=== PATIENT | female | born 1940 | race Caucasian/White ===

== ENCOUNTER → 2017-03-02 | Outpatient (CLI) | payer MEDICARE ==
[2017-03-02 11:02] LABS: ALT 31 U/L (9-52); AST 28 U/L (14-36); Alkaline Phosphatase 96 U/L (38-126); Anion Gap 10 mmol/L; Blood Urea Nitrogen 18 mg/dL (7-17); Calcium 9.6 mg/dL (8.4-10.2); Carbon Dioxide 26 mmol/L (22-30); Chloride 107 mmol/L (98-107); Cholesterol 192 mg/dL (<200); Glucose 94 mg/dL (74-99); HDL Cholesterol 107 mg/dL (40-60); Non-African American GFR(MDRD) >60 (>60 ml/min/1.73 sqM); Potassium 4.5 mmol/L (3.5-5.1); Sodium 143 mmol/L (137-145); Total Bilirubin 0.8 mg/dL (0.2-1.3); Total Protein 7.3 g/dL (6.3-8.2); Triglycerides 90 mg/dL (<150)
== END | disposition home or self-care (01) ==
LOC: LABWHC1 09:16
PROVIDERS: ATTEND Internal Medicine Interventional Cardiology
DX: E78.2 Mixed hyperlipidemia (principal)
CPT/HCPCS: 36415; 80053; 80061

== ENCOUNTER → 2017-03-06 | Outpatient (CLI) | payer MEDICARE ==
--- NOTE | 2017-03-09 08:44 | MM ---
Reason for exam: screening (asymptomatic). Last mammogram was performed 1 year and 3 months ago. History: Patient is postmenopausal. Family history of premenopausal breast cancer in sister at age 43. Physical Findings: A clinical breast exam by your physician is recommended on an annual basis and results should be correlated with mammographic findings. MG Screening Mammo w CAD Bilateral CC and MLO view(s) were taken. Prior study comparison: November 26, 2015, bilateral MG screening mammo w CAD. October 02, 2014, bilateral MG screening mammo w CAD. There are scattered fibroglandular densities. No significant changes when compared with prior studies. ASSESSMENT: Benign, BI-RAD 2 RECOMMENDATION: Routine screening mammogram of both breasts in 1 year.
== END | disposition home or self-care (01) ==
LOC: RADMAMWWP 11:19
PROVIDERS: ATTEND Internal Medicine
DX: Z12.31 Encounter for screening mammogram for malignant neoplasm of breast (principal)

== ENCOUNTER → 2017-04-23 | Outpatient (CLI) | payer MEDICARE ==
--- NOTE | 2017-04-23 14:58 | BD ---
EXAMINATION TYPE: MG DEXA axial skeleton. DATE OF EXAM: 04/23/2017 CLINICAL HISTORY: N95.1 POST MENOPAUSAL Height: 58inches Weight: 127 FRAX RISK QUESTIONS: Alcohol (3 or more units per day): no Family History (Parent hip fracture): no Glucocorticoids (More than 3mos): no (Ex: prednisone, prednisolone, methylprednisolone, dexamethasone, and hydrocortisone). History of Fracture in Adulthood: no Secondary Osteoporosis: 1. Type 1 Diabetes: no 2. Hyperthyroidism: no 3. Menopause before 45: no 4. Malnutrition: no 5. Chronic liver disease: no Rheumatoid Arthritis: no Current Tobacco Use: no RISK FACTORS HISTORY OF: Hip Fracture (Right/Left): no Spine Fracture: no History of Wrist Fracture: no Surgery to Spine/Hip(right/left)/Wrist (right/left): no Family History of Osteoporosis: yes, sister Active: yes Diet low in dairy products/other sources of calcium: at least one serving a day Postmenopausal woman: yes Take estrogen and/or progesterone medications: no Lost more than 2 inches in height since high school: patient states that at one time height was 5 fee t; however 2005 bone density lists 62 inches as height Frequent falls: no Poor Health: no Hyperparathyroidism: no Adrenal Insufficiency: no MEDICATIONS: Prednisone or other steroids: no Thyroid Medications: no Osteoporosis Medications: no Additional Medications: Lisinopril, Metoprolol Lipitor, Omeprazole, EXAM MEASUREMENTS: Bone mineral densitometry was performed using the [employer] System. Bone mineral density as measured about the Lumbar spine is: ----- L1-L4(G/cm2): 0.787 T Score Values are as follows: ----- L2: -3.3 ----- L3: -3.3 ----- L4: -3.2 ----- L1-L4: -3.3 Bone mineral density has: Decreased -12.6% since study of: 07/02/2006 Bone mineral density about the R hip (g/cm2): 0.647 Bone mineral density about the L hip (g/cm2): 0.632 T Score values are as follows: -----R Neck: -2.8 -----L Neck: -2.9 -----R Total: -2.4 -----L Total: -2.4 Bone mineral density has: Decreased -17.8% since study of: 07/02/2006 IMPRESSION: Osteopenia (T Score between -2.5 and -1 as noted by T score values Bilateral Totals There is slightly increased risk of fracture and the patient may be considered for treatment. Re-Screen 2-5 years. Osteoporosis (T Score less than -2.5) as noted by T Score values at the Lumbar Spine & Bilateral Ne cks There is increased fracture risk and therapy is usually indicated based on age. Re-Screen 1-2 years. NOTE: T-SCORE=SD OF THE YOUNG ADULT MEAN.
== END | disposition home or self-care (01) ==
LOC: RADBDWWP 12:34
PROVIDERS: ATTEND Internal Medicine
DX: M85.80 Other specified disorders of bone density and structure, unspecified site (principal); M81.0 Age-related osteoporosis without current pathological fracture; N95.1 Menopausal and female climacteric states
CPT/HCPCS: 77080

== ENCOUNTER → 2017-08-25 | Outpatient (CLI) | payer MEDICARE ==
[2017-08-25 10:11] LABS: ALT 29 U/L (9-52); AST 24 U/L (14-36); Cholesterol 198 mg/dL (<200); HDL Cholesterol 110 mg/dL (40-60)
== END | disposition home or self-care (01) ==
LOC: LABWHC1 09:22
PROVIDERS: ATTEND Internal Medicine Interventional Cardiology
DX: E78.2 Mixed hyperlipidemia (principal)
CPT/HCPCS: 36415; 80061; 84450; 84460

== ENCOUNTER → 2018-04-05 | Outpatient (CLI) | payer MEDICARE ==
[2018-04-05 10:10] LABS: Albumin 4.2 g/dL (3.5-5.0); Calcium 9.4 mg/dL (8.4-10.2); Total Bilirubin 0.7 mg/dL (0.2-1.3); Total Protein 6.8 g/dL (6.3-8.2)
== END | disposition home or self-care (01) ==
LOC: LABWHC1 09:26
PROVIDERS: ATTEND Internal Medicine Interventional Cardiology
DX: E78.2 Mixed hyperlipidemia (principal)
CPT/HCPCS: 36415; 80053; 80061

== ENCOUNTER → 2018-07-20 | Outpatient (CLI) | payer MEDICARE ==
--- NOTE | 2018-07-22 08:19 | MM ---
Reason for exam: screening (asymptomatic). Last mammogram was performed 1 year and 4 months ago. History: Patient is postmenopausal. Family history of premenopausal breast cancer in sister at age 43. Physical Findings: A clinical breast exam by your physician is recommended on an annual basis and results should be correlated with mammographic findings. MG Screening Mammo w CAD Bilateral CC, MLO, and XCCL view(s) were taken. Prior study comparison: March 06, 2017, bilateral MG screening mammo w CAD. November 26, 2015, bilateral MG screening mammo w CAD. There are scattered fibroglandular densities. No significant changes when compared with prior studies. ASSESSMENT: Negative, BI-RAD 1 RECOMMENDATION: Routine screening mammogram of both breasts in 1 year.
== END | disposition home or self-care (01) ==
LOC: RADMAMWWP 12:19
PROVIDERS: ATTEND Internal Medicine
DX: Z12.31 Encounter for screening mammogram for malignant neoplasm of breast (principal)
CPT/HCPCS: 77067

== ENCOUNTER → 2018-10-15 | Outpatient (CLI) | payer MEDICARE ==
[2018-10-15 15:43] LABS: LDL Cholesterol,Calculated 69.2 mg/dL (0.0-131.0); VLDL Calculation 13.8 mg/dL (5.00-40.00)
== END ==
LOC: LABWHC1 09:42
PROVIDERS: ATTEND Internal Medicine Interventional Cardiology
DX: E78.2 Mixed hyperlipidemia (principal)
CPT/HCPCS: 36415; 80061; 84450; 84460

== ENCOUNTER → 2019-02-07 | Outpatient (CLI) | payer MEDICARE ==
[2019-02-07 17:47] LABS: Albumin 4.2 g/dL (3.80-4.90); Albumin/Globulin Ratio 2.33 (1.60-3.17); Anion Gap 11.5 mmol/L (4.00-12.00); Calcium 9.5 mg/dL (8.7-10.3); Carbon Dioxide 26.5 mmol/L (21.6-31.8); Globulin 1.8 g/dL (1.6-3.3); Potassium 4.4 mmol/L (3.5-5.5); Total Bilirubin 0.6 mg/dL (0.2-1.2)
== END | disposition home or self-care (01) ==
LOC: LABWHC1 09:06
PROVIDERS: ATTEND Internal Medicine Interventional Cardiology
DX: E78.2 Mixed hyperlipidemia (principal)
CPT/HCPCS: 36415; 80053; 80061

== ENCOUNTER → 2019-06-13 | Outpatient (CLI) | payer MEDICARE ==
[2019-06-13 17:55] LABS: Chol/HDL Ratio 1.9; LDL Cholesterol,Calculated 73.6 mg/dL (0.0-131.0); VLDL Calculation 14.4 mg/dL (5.00-40.00)
== END | disposition home or self-care (01) ==
LOC: LABWHC1 09:28
PROVIDERS: ATTEND Internal Medicine Interventional Cardiology
DX: E78.2 Mixed hyperlipidemia (principal)
CPT/HCPCS: 36415; 80061; 84450; 84460

== ENCOUNTER → 2019-08-18 | Outpatient (CLI) | payer MEDICARE ==
--- NOTE | 2019-08-19 14:00 | MM ---
Reason for exam: screening (asymptomatic). Last mammogram was performed 1 year and 1 month ago. History: Patient is postmenopausal. Family history of breast cancer in sister at age 79 and premenopausal breast cancer in sister at age 43. Took hormonal contraceptives for 10 years. Physical Findings: A clinical breast exam by your physician is recommended on an annual basis and results should be correlated with mammographic findings. MG Screening Mammo w CAD Bilateral CC and MLO view(s) were taken. Prior study comparison: July 20, 2018, bilateral MG screening mammo w CAD. March 06, 2017, bilateral MG screening mammo w CAD. There are scattered fibroglandular densities. Finding: There is a 6 mm high density, circumscribed oval mass located 8 cm from the nipple in the upper quadrant, middle position of the left breast. New finding since July 20, 2018. ASSESSMENT: Incomplete: need additional imaging evaluation, BI-RAD 0 RECOMMENDATION: Special view mammogram of the left breast. If lesion persists on supplemental views, image directed ultrasound is recommended. [facility] will attempt to contact patient to return for supplemental views and ultrasound if indicated.
== END | disposition home or self-care (01) ==
LOC: RADMAMWWP 11:11
PROVIDERS: ATTEND Internal Medicine
DX: Z12.31 Encounter for screening mammogram for malignant neoplasm of breast (principal)
CPT/HCPCS: 77067

== ENCOUNTER → 2019-08-30 | Outpatient (CLI) | payer MEDICARE ==
--- NOTE | 2019-08-30 10:56 | MM ---
Reason for exam: additional evaluation requested from abnormal screening. Last mammogram was performed less than 1 month ago. History: Patient is postmenopausal. Family history of breast cancer in sister at age 79 and premenopausal breast cancer in sister at age 43. Took hormonal contraceptives for 10 years. Physical Findings: Nurse did not find any significant physical abnormalities on exam. MG Work Up Mamm w CAD LT Spot compression CC, spot compression MLO, and ML view(s) were taken of the left breast. Prior study comparison: August 18, 2019, bilateral MG screening mammo w CAD. July 20, 2018, bilateral MG screening mammo w CAD. Benign appearing calcifications in the left breast. No significant new findings when compared with previous films. These results were verbally communicated with the patient and result sheet given to the patient on 08/30/19. ASSESSMENT: Probably benign, BI-RAD 3 RECOMMENDATION: Follow-up diagnostic mammogram of the left breast in 6 months.
== END ==
LOC: RADMAMWWP 10:13
PROVIDERS: ATTEND Internal Medicine
DX: R92.8 Other abnormal and inconclusive findings on diagnostic imaging of breast (principal)
CPT/HCPCS: 77065

== ENCOUNTER → 2019-09-27 | Outpatient (CLI) | payer MEDICARE ==
[2019-09-27 17:51] LABS: African American GFR (CKD) 71.5 (60.0-200.0); Albumin 4.4 g/dL (3.80-4.90); Albumin/Globulin Ratio 2.32 (1.60-3.17); Anion Gap 7.1 mmol/L (4.00-12.00); BUN/Creat Ratio 16.67 Ratio (12.00-20.00); Calcium 9.5 mg/dL (8.7-10.3); Carbon Dioxide 28.9 mmol/L (21.6-31.8); Chol/HDL Ratio 1.8; Globulin 1.9 g/dL (1.6-3.3); LDL Cholesterol,Calculated 73.8 mg/dL (0.0-131.0); Non-African American GFR(CKD) 61.7 (60.0-200.0); Potassium 4.3 mmol/L (3.5-5.5); Total Bilirubin 0.7 mg/dL (0.2-1.2); Total Protein 6.3 g/dL (6.2-8.2); VLDL Calculation 14.2 mg/dL (5.00-40.00)
== END | disposition home or self-care (01) ==
LOC: LABWHC1 09:19
PROVIDERS: ATTEND Nurse Practitioner Adult Health
DX: E78.2 Mixed hyperlipidemia (principal); I10 Essential (primary) hypertension
CPT/HCPCS: 36415; 80053; 80061

== ENCOUNTER → 2020-08-30 | Outpatient (CLI) | payer MEDICARE ==
--- NOTE | 2020-09-03 09:07 | MM ---
Reason for exam: screening (asymptomatic). Last mammogram was performed 1 year ago. History: Patient is postmenopausal. Family history of breast cancer in sister at age 79 and premenopausal breast cancer in sister at age 43. Took hormonal contraceptives for 10 years. Physical Findings: A clinical breast exam by your physician is recommended on an annual basis and results should be correlated with mammographic findings. MG Screening Mammo w CAD Bilateral CC and MLO view(s) were taken. Prior study comparison: August 30, 2019, left breast MG work up mamm w CAD LT. August 18, 2019, bilateral MG screening mammo w CAD. There are scattered fibroglandular densities. Stable course calcifications bilaterally. Posterior central asymmetry right MLO compatible with a mole as marked on prior exams. No significant changes when compared with prior studies. ASSESSMENT: Benign, BI-RAD 2 RECOMMENDATION: Routine screening mammogram of both breasts in 1 year.
== END | disposition home or self-care (01) ==
LOC: RADMAMWWP 16:08
PROVIDERS: ATTEND Internal Medicine
DX: Z12.31 Encounter for screening mammogram for malignant neoplasm of breast (principal)
CPT/HCPCS: 77067

== ENCOUNTER → 2021-04-11 | Outpatient (CLI) | payer MEDICARE ==
[2021-04-11 17:15] LABS: Chol/HDL Ratio 2.01
== END | disposition home or self-care (01) ==
LOC: LABWHC1 09:34
PROVIDERS: ATTEND Nurse Practitioner Adult Health
DX: E78.2 Mixed hyperlipidemia (principal)
CPT/HCPCS: 36415; 80061

== ENCOUNTER 2021-07-15 18:56 | Inpatient (IN) | payer MEDICARE ==
[2021-07-15] MEDS ORDERED: SODIUM CHLORIDE 0.9% 1,000 ML IV STA (19:54)
--- NOTE | 2021-07-15 20:10 | ED ---
General Adult HPI - General Chief complaint: Dizziness Stated complaint: dizziness Time Seen by Provider: 07/15/21 19:38 Source: patient, EMS Mode of arrival: EMS Limitations: no limitations - History of Present Illness Initial comments: 81-year-old female with a past medical history of GERD, hyperlipidemia, hypertension, palpitations, SVT presents to the emergency room for a chief complaint of lightheadedness. Patient states that she has had lightheadedness for years. However today it has worsened. Patient denies sensation of room spinning. Patient states that she feels fatigued at times throughout the day and she can't keep her eyes open. Sometimes feels too weak to walk. Patient has also had some nausea that just started about 2 hours ago. She does have a cough and congestion as well. No fevers. No diarrhea. Patient states she is eating and drinking. States that she has been to the emergency room before for when her lightheadedness worsens and they can never find anything. She reports this was other hospitals that she has not been to this ER. Patient denies any chest pain or shortness of breath.Patient has no other complaints at this time including shortness of breath, chest pain, abdominal pain, vomiting, headache, or visual changes. - Related Data Home Medications Medication Instructions Recorded Confirmed Aspirin 81 mg PO DAILY 03/01/15 07/15/21 Atorvastatin [Lipitor] 10 mg PO HS 03/01/15 07/15/21 Metoprolol Tartrate [Lopressor] 25 mg PO BID 03/01/15 07/15/21 Meclizine [Antivert] 25 mg PO TID PRN 02/04/16 07/15/21 Omeprazole [PriLOSEC] 20 mg PO DAILY 02/04/16 07/15/21 amLODIPine [Norvasc] 2.5 mg PO HS 07/15/21 07/15/21 lisinopriL 20 mg PO BID 07/15/21 07/15/21 Allergies Allergy/AdvReac Type Severity Reaction Status Date / Time Sulfa (Sulfonamide Allergy Rash/Hives Verified 07/15/21 21:17 Antibiotics) Review of Systems ROS Statement: Those systems with pertinent positive or pertinent negative responses have been documented in the HPI. ROS Other: All systems not noted in ROS Statement are negative. Past Medical History Past Medical History: GERD/Reflux, Hyperlipidemia, Hypertension Additional Past Medical History / Comment(s): HX OF PALPITATIONS, SVT., KIDNEY STONES, HIATAL HERNIA., DIZZINESS. , STATES SHE WAS HAVING DIARRHEA AND TAKING PEPTO BISMOL WITH DARK STOOLS. STATES STOOLS NORMAL NOW. History of Any Multi-Drug Resistant Organisms: None Reported Past Surgical History: Cardiac Ablation, Heart Catheterization, Hysterectomy Additional Past Surgical History / Comment(s): partial hysterectomy, pelvic prolapse/cystocele repair Past Anesthesia/Blood Transfusion Reactions: No Reported Reaction, Motion Sickness Additional Past Anesthesia/Blood Transfusion Reaction / Comment(s): GETS DIZZY AFTERWARDS Past Psychological History: No Psychological Hx Reported Past Alcohol Use History: Rare Past Drug Use History: None Reported - Past Family History Sister(s) Family Medical History: Cancer Additional Family Medical History / Comment(s): BREAST CANCER Father Additional Family Medical History / Comment(s): ulcers, hernia Mother Family Medical History: Hypertension, Renal Disease Additional Family Medical History / Comment(s): lupus General Exam Limitations: no limitations General appearance: alert, in no apparent distress Head exam: Present: atraumatic Eye exam: Present: normal appearance, PERRL, EOMI. Absent: scleral icterus, conjunctival injection ENT exam: Present: normal exam, mucous membranes moist Neck exam: Present: normal inspection, full ROM. Absent: tenderness Respiratory exam: Present: normal lung sounds bilaterally. Absent: respiratory distress, wheezes Cardiovascular Exam: Present: regular rate, normal rhythm, normal heart sounds GI/Abdominal exam: Present: soft, normal bowel sounds. Absent: distended, tenderness Course Vital Signs 07/15/21 07/15/21 07/15/21 19:14 21:55 23:20 Temperature 97.0 F L Pulse Rate 60 78 79 Respiratory 18 18 18 Rate Blood Pressure 167/83 151/75 140/75 O2 Sat by Pulse 95 97 92 L Oximetry EKG Findings - EKG Comments: EKG Findings:: Sinus rhythm, ventricular rate 63, ME interval 158, QTC 450 Medical Decision Making - Medical Decision Making Laboratory evaluation unremarkable. EKG nonischemic. Troponin negative. BNP normal. CT brain was obtained which showed no acute process. Patient did get up to try to use the restroom and her oxygen went down to 87%. Therefore a CTA was ordered of the chest. This did reveal a large hiatal hernia as well as bilateral lower lobe mild infiltrate. Given hypoxia patient was started on oxygen and it was felt it would be best to admit patient to the hospital for IV antibiotics and monitoring. Dr. Bourne did accept this admission. - Lab Data Result diagrams: 07/15/21 19:59 07/15/21 19:59 Lab Results 07/15/21 07/15/21 07/15/21 Range/Units 19:59 19:59 19:59 WBC 6.1 (3.8-10.6) k/uL RBC 4.43 (3.80-5.40) m/uL Hgb 13.3 (11.4-16.0) gm/dL Hct 40.8 (34.0-46.0) % MCV 92.1 (80.0-100.0) fL MCH 30.1 (25.0-35.0) pg MCHC 32.7 (31.0-37.0) g/dL RDW 12.7 (11.5-15.5) % Plt Count 165 (150-450) k/uL MPV 8.9 Neutrophils % 78 % Lymphocytes % 14 % Monocytes % 5 % Eosinophils % 1 % Basophils % 1 % Neutrophils # 4.8 (1.3-7.7) k/uL Lymphocytes # 0.8 L (1.0-4.8) k/uL Monocytes # 0.3 (0-1.0) k/uL Eosinophils # 0.1 (0-0.7) k/uL Basophils # 0.0 (0-0.2) k/uL PT 10.3 (9.0-12.0) sec INR 1.0 (<1.2) APTT 18.7 L (22.0-30.0) sec Sodium (137-145) mmol/L Potassium (3.5-5.1) mmol/L Chloride (98-107) mmol/L Carbon Dioxide (22-30) mmol/L Anion Gap mmol/L BUN (7-17) mg/dL Creatinine (0.52-1.04) mg/dL Est GFR (CKD-EPI)AfAm (>60 ml/min/1.73 sqM) Est GFR (CKD-EPI)NonAf (>60 ml/min/1.73 sqM) Glucose (74-99) mg/dL Plasma Lactic Acid Yahir (0.7-2.0) mmol/L Calcium (8.4-10.2) mg/dL Magnesium (1.6-2.3) mg/dL Total Bilirubin (0.2-1.3) mg/dL AST (14-36) U/L ALT (4-34) U/L Alkaline Phosphatase (38-126) U/L Troponin I (0.000-0.034) ng/mL NT-Pro-B Natriuret Pep pg/mL Total Protein (6.3-8.2) g/dL Albumin (3.5-5.0) g/dL Urine Color Light Yellow Urine Appearance Clear (Clear) Urine pH 5.5 (5.0-8.0) Ur Specific Colver 1.008 (1.001-1.035) Urine Protein Negative (Negative) Urine Glucose (UA) Negative (Negative) Urine Ketones 1+ H (Negative) Urine Blood Negative (Negative) Urine Nitrite Negative (Negative) Urine Bilirubin Negative (Negative) Urine Urobilinogen <2.0 (<2.0) mg/dL Ur Leukocyte Esterase Negative (Negative) Coronavirus (PCR) (Not Detectd) 07/15/21 07/15/21 07/15/21 Range/Units 19:59 19:59 19:59 WBC (3.8-10.6) k/uL RBC (3.80-5.40) m/uL Hgb (11.4-16.0) gm/dL Hct (34.0-46.0) % MCV (80.0-100.0) fL MCH (25.0-35.0) pg MCHC (31.0-37.0) g/dL RDW (11.5-15.5) % Plt Count (150-450) k/uL MPV Neutrophils % % Lymphocytes % % Monocytes % % Eosinophils % % Basophils % % Neutrophils # (1.3-7.7) k/uL Lymphocytes # (1.0-4.8) k/uL Monocytes # (0-1.0) k/uL Eosinophils # (0-0.7) k/uL Basophils # (0-0.2) k/uL PT (9.0-12.0) sec INR (<1.2) APTT (22.0-30.0) sec Sodium 136 L (137-145) mmol/L Potassium 3.9 (3.5-5.1) mmol/L Chloride 104 (98-107) mmol/L Carbon Dioxide 22 (22-30) mmol/L Anion Gap 10 mmol/L BUN 17 (7-17) mg/dL Creatinine 0.73 (0.52-1.04) mg/dL Est GFR (CKD-EPI)AfAm >90 (>60 ml/min/1.73 sqM) Est GFR (CKD-EPI)NonAf 79 (>60 ml/min/1.73 sqM) Glucose 127 H (74-99) mg/dL Plasma Lactic Acid Yahir 1.0 (0.7-2.0) mmol/L Calcium 9.6 (8.4-10.2) mg/dL Magnesium 1.6 (1.6-2.3) mg/dL Total Bilirubin 0.7 (0.2-1.3) mg/dL AST 29 (14-36) U/L ALT 16 (4-34) U/L Alkaline Phosphatase 82 (38-126) U/L Troponin I <0.012 (0.000-0.034) ng/mL NT-Pro-B Natriuret Pep pg/mL Total Protein 7.1 (6.3-8.2) g/dL Albumin 4.3 (3.5-5.0) g/dL Urine Color Urine Appearance (Clear) Urine pH (5.0-8.0) Ur Specific Colver (1.001-1.035) Urine Protein (Negative) Urine Glucose (UA) (Negative) Urine Ketones (Negative) Urine Blood (Negative) Urine Nitrite (Negative) Urine Bilirubin (Negative) Urine Urobilinogen (<2.0) mg/dL Ur Leukocyte Esterase (Negative) Coronavirus (PCR) (Not Detectd) 07/15/21 07/15/21 Range/Units 19:59 19:59 WBC (3.8-10.6) k/uL RBC (3.80-5.40) m/uL Hgb (11.4-16.0) gm/dL Hct (34.0-46.0) % MCV (80.0-100.0) fL MCH (25.0-35.0) pg MCHC (31.0-37.0) g/dL RDW (11.5-15.5) % Plt Count (150-450) k/uL MPV Neutrophils % % Lymphocytes % % Monocytes % % Eosinophils % % Basophils % % Neutrophils # (1.3-7.7) k/uL Lymphocytes # (1.0-4.8) k/uL Monocytes # (0-1.0) k/uL Eosinophils # (0-0.7) k/uL Basophils # (0-0.2) k/uL PT (9.0-12.0) sec INR (<1.2) APTT (22.0-30.0) sec Sodium (137-145) mmol/L Potassium (3.5-5.1) mmol/L Chloride (98-107) mmol/L Carbon Dioxide (22-30) mmol/L Anion Gap mmol/L BUN (7-17) mg/dL Creatinine (0.52-1.04) mg/dL Est GFR (CKD-EPI)AfAm (>60 ml/min/1.73 sqM) Est GFR (CKD-EPI)NonAf (>60 ml/min/1.73 sqM) Glucose (74-99) mg/dL Plasma Lactic Acid Yahir (0.7-2.0) mmol/L Calcium (8.4-10.2) mg/dL Magnesium (1.6-2.3) mg/dL Total Bilirubin (0.2-1.3) mg/dL AST (14-36) U/L ALT (4-34) U/L Alkaline Phosphatase (38-126) U/L Troponin I (0.000-0.034) ng/mL NT-Pro-B Natriuret Pep 284 pg/mL Total Protein (6.3-8.2) g/dL Albumin (3.5-5.0) g/dL Urine Color Urine Appearance (Clear) Urine pH (5.0-8.0) Ur Specific Colver (1.001-1.035) Urine Protein (Negative) Urine Glucose (UA) (Negative) Urine Ketones (Negative) Urine Blood (Negative) Urine Nitrite (Negative) Urine Bilirubin (Negative) Urine Urobilinogen (<2.0) mg/dL Ur Leukocyte Esterase (Negative) Coronavirus (PCR) Not Detected (Not Detectd) Disposition Clinical Impression: Hypoxia, Pneumonia, Weakness Disposition: ADMITTED IP TO THIS HOSP Referrals: Rehan Bourne MD [Primary Care Provider] - 1-2 days Time of Disposition: 00:07
[2021-07-15 20:15] LABS: Basophils % (A) 1 %; Eosinophils # (A) 0.1 k/uL (0-0.7); Eosinophils % (A) 1 %; HCT 40.8 % (34.0-46.0); HGB 13.3 gm/dL (11.4-16.0); Lymphocytes # (A) 0.8 k/uL (1.0-4.8); Lymphocytes % (A) 14 %; MCH 30.1 pg (25.0-35.0); MCHC 32.7 g/dL (31.0-37.0); MCV 92.1 fL (80.0-100.0); Mean Platelet Volume 8.9; Monocytes # (A) 0.3 k/uL (0-1.0); Monocytes % (A) 5 %; Neutrophils # (A) 4.8 k/uL (1.3-7.7); Neutrophils % (A) 78 %; Platelet Count 165 k/uL (150-450); RBC 4.43 m/uL (3.80-5.40); RDW 12.7 % (11.5-15.5); WBC 6.1 k/uL (3.8-10.6)
[2021-07-15 20:24] LABS: ALT 16 U/L (4-34); AST 29 U/L (14-36); African American GFR (CKD) >90 (>60 ml/min/1.73 sqM); Albumin 4.3 g/dL (3.5-5.0); Alkaline Phosphatase 82 U/L (38-126); Anion Gap 10 mmol/L; Blood Urea Nitrogen 17 mg/dL (7-17); Calcium 9.6 mg/dL (8.4-10.2); Carbon Dioxide 22 mmol/L (22-30); Chloride 104 mmol/L (98-107); Glucose 127 mg/dL (74-99); Magnesium 1.6 mg/dL (1.6-2.3); Non-African American GFR(CKD) 79 (>60 ml/min/1.73 sqM); Potassium 3.9 mmol/L (3.5-5.1); Sodium 136 mmol/L (137-145); Total Bilirubin 0.7 mg/dL (0.2-1.3); Total Protein 7.1 g/dL (6.3-8.2)
--- NOTE | 2021-07-15 20:35 | XR ---
EXAMINATION TYPE: XR chest 2V DATE OF EXAM: 07/15/2021 COMPARISON: 08/18/2010 HISTORY: Weakness TECHNIQUE: FINDINGS: There is large hiatal hernia. There is no heart failure nor confluent pneumonic infiltrate. Costophrenic angles are clear. Bony thorax is intact. Heart size is fairly normal. IMPRESSION: Large hiatal hernia that is new compared to old exam. No acute lung disease.
[2021-07-15 20:48] LABS: Prothrombin Time 10.3 sec (9.0-12.0)
--- NOTE | 2021-07-15 20:56 | CT ---
EXAMINATION TYPE: CT brain wo con DATE OF EXAM: 07/15/2021 COMPARISON: None HISTORY: Dizziness. CT DLP: 1111.4 mGycm Automated exposure control for dose reduction was used. There is cerebral cortical atrophy. There is no mass effect nor midline shift. There is no sign of in tracranial hemorrhage. Skull base is intact. Calvarium is intact. IMPRESSION: Mild atrophy. No acute intracranial abnormality.
[2021-07-15 20:58] LABS: Partial Thromboplastin Time 18.7 sec (22.0-30.0)
[2021-07-15] MEDS ORDERED: MECLIZINE 12.5 MG TAB PO STA (21:43)
[2021-07-15 21:59] LABS: Appearance,Urine Clear (Clear); Bilirubin,Urine Negative (Negative); Blood,Urine Negative (Negative); Color,Urine Light Yellow; Glucose,Urine (UA) Negative (Negative); Ketones,Urine 1+ (Negative); Leukocyte Esterase,Urine Negative (Negative); Nitrite,Urine Negative (Negative); PH, Urine 5.5 (5.0-8.0); Protein,Urine Negative (Negative); Specific Gravity,Urine 1.008 (1.001-1.035); Urobilinogen,Urine <2.0 mg/dL (<2.0)
[2021-07-15] MEDS: lisinopriL 20 MG TAB PO SCH (23:21)
[2021-07-15] MEDS: ATORVASTATIN 10 MG TAB PO SCH (23:21)
[2021-07-15] MEDS: amLODIPine 2.5 MG TAB PO SCH (23:22)
[2021-07-15] MEDS: METOPROLOL TARTRATE 25 MG TAB PO SCH (23:22)
--- NOTE | 2021-07-15 23:23 | CT ---
EXAMINATION TYPE: CT chest angio for PE DATE OF EXAM: 07/15/2021 COMPARISON: 08/04/2016 HISTORY: hypoxia CT DLP: 211.8 mGycm Automated exposure control for dose reduction was used. CONTRAST: Performed with IV Contrast, patient injected with 100 mL of Isovue 370. There is 3-D post processed images. There is very large hiatal hernia and intrathoracic stomach. Heart is borderline enlarged. There is n o pericardial effusion. There is infiltrate and atelectasis at the left lung base. There is mild atel ectasis right lung base. There is normal contrast opacification of the pulmonary arteries. There are no filling defects. There are no hilar masses. There is no mediastinal adenopathy. Thoracic aorta appears intact. There is no aneurysm or dissection. The ascending aorta measures 3.5 cm. Thoracic spine is intact. There is no significant compression deformity. Sternum is intact. Upper abd ominal soft tissues are intact. IMPRESSION: No evidence of pulmonary embolism. Large hiatal hernia. Bilateral lower lobe pulmonary atelectasis and mild infiltrate. Hiatal hernia in creased compared to old exam.
[2021-07-16] MEDS ORDERED: PNEUMONIA PROTOCOL UTILIZED 1 EACH MISC PO PRN (00:03)
[2021-07-16] MEDS ORDERED: AZITHROMYCIN 500 MG in SODIUM CHLORIDE 0.9% 250 ML IVPB STA (00:03)
[2021-07-16] MEDS: PANTOPRAZOLE 40 MG TABLET PO SCH (09:01)
[2021-07-16] MEDS: lisinopriL 20 MG TAB PO SCH ×2 (09:02→20:32)
[2021-07-16] MEDS: ASPIRIN 81 MG PO SCH (09:02)
[2021-07-16] MEDS: METOPROLOL TARTRATE 25 MG TAB PO SCH ×2 (09:02→20:32)
--- NOTE | 2021-07-16 12:41 | US ---
EXAMINATION TYPE: US carotid duplex BILAT DATE OF EXAM: 07/16/2021 COMPARISON: NONE CLINICAL HISTORY: Lightheadedness. EXAM MEASUREMENTS: RIGHT: Peak Systolic Velocity (PSV) cm/sec ----- Right CCA: 79.0 ----- Right ICA: 73.1 ----- Right ECA: 69.5 ICA/CCA ratio: 0.93 RIGHT: End Diastole cm/sec ----- Right CCA: 21.4 ----- Right ICA: 23.8 ----- Right ECA: 13.7 LEFT: Peak Systolic Velocity (PSV) cm/sec ----- Left CCA: 76.6 ----- Left ICA: 98.0 ----- Left ECA: 67.7 ICA/CCA ratio: 1.3 LEFT: End Diastole cm/sec ----- Left CCA: 20.8 ----- Left ICA: 29.7 ----- Left ECA: 13.1 VERTEBRALS (direction of flow): Right Vertebral: Antegrade Left Vertebral: Antegrade Rhythm: Normal Grayscale, color Doppler, spectral Doppler imaging performed of the carotid arteries. Waveform analys is does not show significant stenosis of the internal carotid arteries. No elevated velocities IMPRESSION: No hemodynamically significant stenosis of the proximal internal carotid arteries by Dop pler criteria, indirect measurement of carotid stenosis Criteria for Assigning % of Stenosis / Diameter reduction (Estimation based on the indirect measurements of the internal carotid artery velocities (ICA PSV). 1. Normal (no stenosis)=ICA PSV < 125 cm/s: ratio < 2.0: ICA EDV<40 cm/s. 2. Less than 50% stenosis=ICA PSV < 125 cm/s: ratio < 2.0: ICA EDV<40 cm/s. 3. 50 to 69% stenosis=ICA PSV of 125 to 230 cm/s: ration 2.0 ? 4.0: ICA EDV 40-100 cm/s. 4. Greater than 70% stenosis to near occlusion= ICA PSV > 230 cm/s: ratio > 4.0: ICA EDV > 100 cm/s. 5. Near occlusion= ICA PSV velocities may be low or undetectable: variable ratio and ICA EDV. 6. Total occlusion=unable to detect flow.
[2021-07-16] MEDS: MECLIZINE 25 MG TAB PO PRN ×2 (13:28→18:06)
--- NOTE | 2021-07-16 17:38 | P.HPIM ---
History of Present Illness H&P Date: 07/16/21 Adelina Neal, is a 81-year-old female who presented to [facility] emergency room with a chief complaint of feeling lightheaded She was evaluated in the emergency room vital examination on presentation revealed a temperature of 97 pulse 60 respiration 18 blood pressure 167/83 pulse ox 95% on room air Laboratory data revealed a white blood count of 6.1 hemoglobin 13.3 platelet count 165 sodium 136 potassium 3.9 chloride 108 CO2 22 BUN 17 creatinine 0.73 glucose level was 127 patient had normal liver enzymes normal troponin and normal BNP urine analysis did not reveal any evidence of infection coronavirus PCR was negative Testing in the emergency room revealed chest x-ray done in the emergency room revealed large bilateral hernia, no acute lung disease, brain computed tomogr aphy scan without contrast revealed mild atrophy otherwise no acute intracranial abnormality, chest CT angiogram revealed no evidence of pulmonary embolism there was a mild infiltrate in bilateral lower lobes, she was started on IV antibiotic in the emergency room. Patient was admitted to medical floor for further evaluation and treatment Past medical history is significant for history of hypertension, history of osteoporosis, history of hyperlipidemia, history of thyroid nodule, and history of gastroesophageal reflux disease Past Medical History Past Medical History: GERD/Reflux, Hyperlipidemia, Hypertension Additional Past Medical History / Comment(s): HX OF PALPITATIONS, SVT., KIDNEY STONES, HIATAL HERNIA., DIZZINESS. , STATES SHE WAS HAVING DIARRHEA AND TAKING PEPTO BISMOL WITH DARK STOOLS. STATES STOOLS NORMAL NOW. History of Any Multi-Drug Resistant Organisms: None Reported Past Surgical History: Cardiac Ablation, Heart Catheterization, Hysterectomy Additional Past Surgical History / Comment(s): partial hysterectomy, pelvic prolapse/cystocele repair Past Anesthesia/Blood Transfusion Reactions: No Reported Reaction, Motion Sickness Additional Past Anesthesia/Blood Transfusion Reaction / Comment(s): GETS DIZZY AFTERWARDS Past Psychological History: No Psychological Hx Reported Past Alcohol Use History: Rare Past Drug Use History: None Reported - Past Family History Sister(s) Family Medical History: Cancer Additional Family Medical History / Comment(s): BREAST CANCER Father Additional Family Medical History / Comment(s): ulcers, hernia Mother Family Medical History: Hypertension, Renal Disease Additional Family Medical History / Comment(s): lupus Medications and Allergies Home Medications Medication Instructions Recorded Confirmed Type Aspirin 81 mg PO DAILY 03/01/15 07/15/21 History Atorvastatin [Lipitor] 10 mg PO HS 03/01/15 07/15/21 History Metoprolol Tartrate [Lopressor] 25 mg PO BID 03/01/15 07/15/21 History Meclizine [Antivert] 25 mg PO TID PRN 02/04/16 07/15/21 History Omeprazole [PriLOSEC] 20 mg PO DAILY 02/04/16 07/15/21 History amLODIPine [Norvasc] 2.5 mg PO HS 07/15/21 07/15/21 History lisinopriL 20 mg PO BID 07/15/21 07/15/21 History Allergies Allergy/AdvReac Type Severity Reaction Status Date / Time Sulfa (Sulfonamide Allergy Rash/Hives Verified 07/15/21 21:17 Antibiotics) Physical Exam Vitals: Vital Signs Temp Pulse Pulse Resp BP BP Pulse Ox 07/16/21 08:55 72 17 152/78 95 07/16/21 02:00 70 16 135/72 93 L 07/16/21 01:00 71 17 144/90 94 L 07/15/21 23:20 79 18 140/75 92 L 07/15/21 21:55 78 18 151/75 97 07/15/21 19:14 97.0 F L 60 18 167/83 95 Intake and Output 07/15/21 07/16/21 07/16/21 22:59 06:59 14:59 Other: Weight 55.338 kg In general patient is alert and oriented x 3 in no distress HEENT head normocephalic and atraumatic Neck is supple no JVD no goiter no lymphadenopathy no carotid bruit Chest examination is clear to auscultation no crackles no wheezing Cardiac exam reveals regular heart sounds S1 and S2 no gallops no murmurs Abdomen is soft nontender no organomegaly with normal bowel sounds Extremity exam reveals no edema no cyanosis or clubbing Neurological examination reveals no gross focal deficits Results CBC & Chem 7: 07/15/21 19:59 07/15/21 19:59 Labs: Abnormal Lab Results - Last 24 Hours (Table) 07/15/21 07/15/21 07/15/21 Range/Units 19:59 19:59 19:59 Lymphocytes # 0.8 L (1.0-4.8) k/uL APTT 18.7 L (22.0-30.0) sec Sodium (137-145) mmol/L Glucose (74-99) mg/dL Urine Ketones 1+ H (Negative) 07/15/21 Range/Units 19:59 Lymphocytes # (1.0-4.8) k/uL APTT (22.0-30.0) sec Sodium 136 L (137-145) mmol/L Glucose 127 H (74-99) mg/dL Urine Ketones (Negative) Assessment and Plan Plan: Lightheadedness on presentation, at this time will check echocardiogram and carotid Doppler and monitor blood pressure closely including orthostatic blood pressure Bibasilar infiltrates on chest x-ray suggestive of pneumonia, patient started on IV Rocephin and Zithromax in the emergency room will continue at this time Underlying history of hypertension Underlying history of hyperlipidemia Underlying history of gastroesophageal reflux disease Evidence of large hiatal hernia At this time home medications reviewed and reordered Continue with IV antibiotics Check echocardiogram and carotid Doppler, consult cardiology regarding lighthe adedness Will follow closely
[2021-07-16] MEDS: ATORVASTATIN 10 MG TAB PO SCH (20:32)
[2021-07-16] MEDS: AZITHROMYCIN 500 MG TAB PO SCH (20:32)
[2021-07-16] MEDS: amLODIPine 2.5 MG TAB PO SCH (20:32)
--- NOTE | 2021-07-17 07:52 | XR ---
EXAMINATION TYPE: XR chest 1V DATE OF EXAM: 07/17/2021 COMPARISON: Chest x-ray 07/15/2021, chest CT 08/04/2016 HISTORY: Pneumonia TECHNIQUE: Single frontal view of the chest is obtained. FINDINGS: Patient is rotated. There is retrocardiac density present. No evident pneumothorax. Cardia c mediastinal silhouette shows a similar appearance. Bone mineralization appears stable. IMPRESSION: Retrocardiac density likely relates to hiatal hernia with intrathoracic stomach. Heart a ppears borderline enlarged.
[2021-07-17] MEDS: PANTOPRAZOLE 40 MG TABLET PO SCH (09:46)
[2021-07-17] MEDS: METOPROLOL TARTRATE 25 MG TAB PO SCH ×2 (09:46→21:20)
[2021-07-17] MEDS: lisinopriL 20 MG TAB PO SCH ×2 (09:46→21:21)
[2021-07-17] MEDS: ASPIRIN 81 MG PO SCH (09:46)
[2021-07-17 10:18] LABS: Basophils % (A) 1 %; Eosinophils # (A) 0.1 k/uL (0-0.7); Eosinophils % (A) 2 %; HGB 14.6 gm/dL (11.4-16.0); Lymphocytes # (A) 1.3 k/uL (1.0-4.8); Lymphocytes % (A) 18 %; MCH 29.9 pg (25.0-35.0); MCHC 32.5 g/dL (31.0-37.0); Mean Platelet Volume 8.7; Monocytes # (A) 0.4 k/uL (0-1.0); Monocytes % (A) 5 %; Neutrophils # (A) 5.4 k/uL (1.3-7.7); Neutrophils % (A) 73 %; Platelet Count 219 k/uL (150-450); RBC 4.89 m/uL (3.80-5.40); RDW 12.7 % (11.5-15.5); WBC 7.4 k/uL (3.8-10.6)
--- NOTE | 2021-07-17 10:21 | P.PN ---
Subjective Progress Note Date: 07/17/21 Adelina Neal, is a 81-year-old female who presented to [facility] emergency room with a chief complaint of feeling lightheaded She was evaluated in the emergency room vital examination on presentation revealed a temperature of 97 pulse 60 respiration 18 blood pressure 167/83 pulse ox 95% on room air Laboratory data revealed a white blood count of 6.1 hemoglobin 13.3 platelet count 165 sodium 136 potassium 3.9 chloride 108 CO2 22 BUN 17 creatinine 0.73 glucose level was 127 patient had normal liver enzymes normal troponin and normal BNP urine analysis did not reveal any evidence of infection coronavirus PCR was negative Testing in the emergency room revealed chest x-ray done in the emergency room revealed large bilateral hernia, no acute lung disease, brain computed tomography scan without contrast revealed mild atrophy otherwise no acute intracranial abnormality, chest CT angiogram revealed no evidence of pulmonary embolism there was a mild infiltrate in bilateral lower lobes, she was started on IV antibiotic in the emergency room. Patient was admitted to medical floor for further evaluation and treatment Past medical history is significant for history of hypertension, history of osteoporosis, history of hyperlipidemia, history of thyroid nodule, and history of gastroesophageal reflux disease on 07/17/2021 patient alert and oriented 3.carotid Doppler completed showing no hemodynamically significant stenosis of the proximal internal carotid arteries.patient remains on Rocephin and azithromycin. Cardiology services consulted. At this time patient denies chest pain or shortness of breath. Patient denies nausea vomiting or diarrhea. Patient denies any urinary burning or frequency Objective - Vital Signs Vital signs: Vital Signs Temp 98.0 F 07/16/21 17:57 Pulse 64 07/17/21 09:45 Resp 18 07/17/21 09:45 BP 148/84 07/17/21 09:45 Pulse Ox 95 07/17/21 09:45 - Exam In general patient is alert and oriented x 3 in no distress HEENT head normocephalic and atraumatic Neck is supple no JVD no goiter no lymphadenopathy no carotid bruit Chest examination is clear to auscultation no crackles no wheezing Cardiac exam reveals regular heart sounds S1 and S2 no gallops no murmurs Abdomen is soft nontender no organomegaly with normal bowel sounds Extremity exam reveals no edema no cyanosis or clubbing Neurological examination reveals no gross focal deficits - Labs CBC & Chem 7: 07/15/21 19:59 07/15/21 19:59 Labs: Microbiology - Last 24 Hours (Table) 07/16/21 01:10 Blood Culture - Preliminary Blood No Growth after 24 hours 07/16/21 01:00 Blood Culture - Preliminary Blood No Growth after 24 hours Assessment and Plan Plan: Lightheadedness on presentation, at this time will check echocardiogram and carotid Doppler and monitor blood pressure closely including orthostatic blood pressure. Carotid Doppler negative Bibasilar infiltrates on chest x-ray suggestive of pneumonia, patient started on IV Rocephin and Zithromax in the emergency room will continue at this time Underlying history of hypertension Underlying history of hyperlipidemia Underlying history of gastroesophageal reflux disease Evidence of large hiatal hernia At this time home medications reviewed and reordered Continue with IV antibiotics carotid Doppler negative 2-D echo pending Repeat labs ordered for a.m. Will follow closely
[2021-07-17 10:45] LABS: ALT 15 U/L (4-34); AST 28 U/L (14-36); African American GFR (CKD) >90 (>60 ml/min/1.73 sqM); Albumin 4.1 g/dL (3.5-5.0); Albumin/Globulin Ratio 1.3; Alkaline Phosphatase 89 U/L (38-126); Anion Gap 7 mmol/L; Blood Urea Nitrogen 13 mg/dL (7-17); Calcium 9.6 mg/dL (8.4-10.2); Carbon Dioxide 27 mmol/L (22-30); Chloride 104 mmol/L (98-107); Globulin 3.1 g/dL; Glucose 95 mg/dL (74-99); Non-African American GFR(CKD) 85 (>60 ml/min/1.73 sqM); Potassium 3.6 mmol/L (3.5-5.1); Sodium 138 mmol/L (137-145); Total Bilirubin 0.7 mg/dL (0.2-1.3); Total Protein 7.2 g/dL (6.3-8.2)
--- NOTE | 2021-07-17 11:14 | ECHOF ---
Referral Reason:Lightheadedness MEASUREMENTS -------- HEIGHT: 152.4 cm WEIGHT: 55.3 kg BP: 152/87 RVIDd: 2.9 cm (< 3.3) IVSd: 1.0 cm (0.6 - 1.1) LVIDd: 3.8 cm (3.9 - 5.3) LVPWd: 1.1 cm (0.6 - 1.1) IVSs: 1.5 cm LVIDs: 2.8 cm LVPWs: 1.2 cm LA Diam: 2.4 cm (2.7 - 3.8) Ao Diam: 3.0 cm (2.0 - 3.7) AV Cusp: 2.0 cm (1.5 - 2.6) MV EXCURSION: 6.486 mm (> 18.000) MV EF SLOPE: 19 mm/s (70 - 150) EPSS: 0.7 cm MV E Bib: 0.79 m/s MV DecT: 171 ms MV A Bib: 1.21 m/s MV E/A Ratio: 0.65 AR PHT: 348 ms RAP: 5.00 mmHg RVSP: 33.46 mmHg FINDINGS -------- Sinus rhythm. This was a technically adequate study. The left ventricular size is normal. Left ventricular wall thickness is normal. Overall left vent ricular systolic function is normal with, an EF between 60 - 65 %. The right ventricle is normal in size. The left atrium is normal in size. The right atrium is normal in size. Interatrial and interventricular septum intact. There is mild aortic valve sclerosis. There is moderate aortic regurgitation. There is trace mitral regurgitation. Mild tricuspid regurgitation present. Right ventricular systolic pressure is normal at < 35 mmHg. Trace/mild (physiologic) pulmonic regurgitation. The aortic root size is normal. IVC Not well visulized. There is no pericardial effusion. CONCLUSIONS -------- 1. The left ventricular size is normal. 2. Left ventricular wall thickness is normal. 3. Overall left ventricular systolic function is normal with, an EF between 60 - 65 %. 4. There is mild aortic valve sclerosis. 5. There is moderate aortic regurgitation. 6. There is trace mitral regurgitation. 7. Mild tricuspid regurgitation present. 8. Trace/mild (physiologic) pulmonic regurgitation. 9. There is no pericardial effusion. OEM SALES MANAGER: Na Hayden RDCS
--- NOTE | 2021-07-17 11:47 | P.CRDCN ---
History of Present Illness History of present illness: HISTORY OF PRESENTING ILLNESS This is a pleasant 81-year-old female past medical history significant for hypertension, dyslipidemia, SVT s/p ablation in 2009, palpitations, GERD. She follows in the office with Dr. Hamilton. We have been asked to see in consultation for lightheadedness. Patient presents to the emergency department with complaints of lightheadedness and dizziness. She states she was sitting down and had an acute onset of dizziness. She states she has been having this for 4 years, mostly when she bends over and when she turns her head from side to side. She states her symptoms usually last for about a week. She has not seen an ENT provider before. She states currently her symptoms have improved. Denies chest pain, shortness of breath, worsening palpitations, syncope. Denies nausea, vomiting, abdominal pain, diarrhea. Patient recently saw Dr. Hamilton April 2021 she was having symptoms of palpitations and shortness of breath lasted about 15 minutes and occurring about 3 days a week. At that time the patient stated there more frequent. She had an event monitor placed and results revealed sinus mechanism, Single PACs noted, no evidence of atrial fibrillation or ventricular ectopic activity or pauses. DIAGNOSTICS EKG reveals sinus rhythm, HR 63, PAC, T wave inversions in leads III, aVF. EKG in 2014 with similar findings Event monitor in the office April 2021 revealed sinus mechanism, Single PACs noted, no evidence of atrial fibrillation or ventricular ectopic activity or pauses. Chest xray large hiatal hernia Brain CT- no acute intracranial abnormality CT chest- no pulmonary embolism, large hiatal hernia, bilateral lower lobe pulmonary infiltrates. Carotid dopplers- no significant stenosis Laboratory reviewed, CBC unremarkable, sodium 136, potassium 3.9, BUN 17, serum creatinine 0.7, troponin negative 1, proBNP 284, COVID-19 PCR negative Current home medications include lisinopril 20 mg twice a day, amlodipine 2.5 mg daily, Lopressor 25 mg twice a day, atorvastatin 10 mg daily, aspirin 81 mg daily, Meclizine and omeprazole REVIEW OF SYSTEMS At the time of my exam: CONSTITUTIONAL: Denies fever or chills. CARDIOVASCULAR: Denies chest pain, shortness of breath, orthopnea, PND or palpitations. RESPIRATORY: Denies cough. GASTROINTESTINAL: Denies abdominal pain, diarrhea, constipation, nausea or vomiting. MUSCULOSKELETAL: Denies myalgias. NEUROLOGIC: +dizziness Denies numbness, tingling, headacbe or weakness. ENDOCRINE: Denies fatigue, weight change, polydipsia or polyurina. GENITOURINARY: Denies burning, hematuria or urgency with micturation. HEMATOLOGIC: Denies history of anemia or bleeding. PHYSICAL EXAMINATION Blood pressure 148/84 heart rate 64 afebrile and maintaining oxygen saturation on room air, CONSTITUTIONAL: No apparent distress. HEENT: Head is normocephalic. Pupils are equal, round. Sclerae anicteric. Mucous membranes of the mouth are moist. No JVD. No carotid bruit. CHEST EXAMINATION: Lungs are clear to auscultation. No chest wall tenderness is noted on palpation or with deep breathing. HEART EXAMINATION: Regular rate and rhythm. S1, S2 heard. No murmurs, gallops or rub. ABDOMEN: Soft, nontender. Positive bowel sounds. EXTREMITIES: 2+ peripheral pulses, no lower extremity edema and no calf tenderness. NEUROLOGIC EXAMINATION: Patient is awake, alert and oriented x3. ASSESSMENT Lightheadedness, Dizziness Hypertension Dyslipidemia SVT s/p ablation in 2009 History of Palpitations Chronic orthostatic hypotension PLAN -Patient symptoms appear to possibly be vertigo, her symptoms are exacerbated by turning her head from side to side. She has had theses episodes/symptoms for about 4-5 years, also exacerbated by bending over. She also has chronic orthostatic hypotension. -From a cardiology perspective, no further cardiac workup indicated. Recommend follow up with ENT as outpatient. -We will follow the patient as needed, please reach out with further questions or concerns. -Patient to follow up with Dr. Hamilton as scheduled. Nurse Practitioner note has been reviewed, I agree with a documented findings and plan of care. Patient was seen and examined. Past Medical History Past Medical History: GERD/Reflux, Hyperlipidemia, Hypertension Additional Past Medical History / Comment(s): HX OF PALPITATIONS, SVT., KIDNEY STONES, HIATAL HERNIA., DIZZINESS. , STATES SHE WAS HAVING DIARRHEA AND TAKING PEPTO BISMOL WITH DARK STOOLS. STATES STOOLS NORMAL NOW. History of Any Multi-Drug Resistant Organisms: None Reported Past Surgical History: Cardiac Ablation, Heart Catheterization, Hysterectomy Additional Past Surgical History / Comment(s): partial hysterectomy, pelvic prolapse/cystocele repair Past Anesthesia/Blood Transfusion Reactions: No Reported Reaction, Motion Sickness Additional Past Anesthesia/Blood Transfusion Reaction / Comment(s): GETS DIZZY AFTERWARDS Past Psychological History: No Psychological Hx Reported Past Alcohol Use History: Rare Past Drug Use History: None Reported - Past Family History Sister(s) Family Medical History: Cancer Additional Family Medical History / Comment(s): BREAST CANCER Father Additional Family Medical History / Comment(s): ulcers, hernia Mother Family Medical History: Hypertension, Renal Disease Additional Family Medical History / Comment(s): lupus Medications and Allergies Home Medications Medication Instructions Recorded Confirmed Type Aspirin 81 mg PO DAILY 03/01/15 07/15/21 History Atorvastatin [Lipitor] 10 mg PO HS 03/01/15 07/15/21 History Metoprolol Tartrate [Lopressor] 25 mg PO BID 03/01/15 07/15/21 History Meclizine [Antivert] 25 mg PO TID PRN 02/04/16 07/15/21 History Omeprazole [PriLOSEC] 20 mg PO DAILY 02/04/16 07/15/21 History amLODIPine [Norvasc] 2.5 mg PO HS 07/15/21 07/15/21 History lisinopriL 20 mg PO BID 07/15/21 07/15/21 History Allergies Allergy/AdvReac Type Severity Reaction Status Date / Time Sulfa (Sulfonamide Allergy Rash/Hives Verified 07/15/21 21:17 Antibiotics) Physical Exam Vitals: Vital Signs Temp Pulse Pulse Resp BP BP Pulse Ox 07/16/21 08:55 72 17 152/78 95 07/16/21 02:00 70 16 135/72 93 L 07/16/21 01:00 71 17 144/90 94 L 07/15/21 23:20 79 18 140/75 92 L 07/15/21 21:55 78 18 151/75 97 07/15/21 19:14 97.0 F L 60 18 167/83 95 Intake and Output 07/15/21 07/16/21 07/16/21 22:59 06:59 14:59 Other: Weight 55.338 kg Results 07/17/21 09:09 07/17/21 09:09 Cardiac Enzymes 07/15/21 07/15/21 Range/Units 19:59 19:59 AST 29 (14-36) U/L Troponin I <0.012 (0.000-0.034) ng/mL Coagulation 07/15/21 Range/Units 19:59 PT 10.3 (9.0-12.0) sec APTT 18.7 L (22.0-30.0) sec CBC 07/15/21 Range/Units 19:59 WBC 6.1 (3.8-10.6) k/uL RBC 4.43 (3.80-5.40) m/uL Hgb 13.3 (11.4-16.0) gm/dL Hct 40.8 (34.0-46.0) % Plt Count 165 (150-450) k/uL Comprehensive Metabolic Panel 07/15/21 Range/Units 19:59 Sodium 136 L (137-145) mmol/L Potassium 3.9 (3.5-5.1) mmol/L Chloride 104 (98-107) mmol/L Carbon Dioxide 22 (22-30) mmol/L BUN 17 (7-17) mg/dL Creatinine 0.73 (0.52-1.04) mg/dL Glucose 127 H (74-99) mg/dL Calcium 9.6 (8.4-10.2) mg/dL AST 29 (14-36) U/L ALT 16 (4-34) U/L Alkaline Phosphatase 82 (38-126) U/L Total Protein 7.1 (6.3-8.2) g/dL Albumin 4.3 (3.5-5.0) g/dL Current Medications Generic Name Dose Route Start Last Admin Trade Name Freq PRN Reason Stop Dose Admin Amlodipine Besylate 2.5 mg 07/15/21 22:45 07/15/21 23:22 Amlodipine 2.5 Mg Tab PO 2.5 mg HS GILDARDO Administration Aspirin 81 mg 07/16/21 09:00 07/16/21 09:02 Aspirin 81 Mg PO 81 mg DAILY GILDARDO Administration Atorvastatin Calcium 10 mg 07/15/21 22:45 07/15/21 23:21 Atorvastatin 10 Mg Tab PO 10 mg HS GILDARDO Administration Azithromycin 500 mg 07/16/21 21:00 Azithromycin 500 Mg Tab PO 07/17/21 21:01 DAILY@2100 GILDARDO Ceftriaxone Sodium 2 gm/ 50 mls @ 100 mls/hr 07/17/21 01:00 Sodium Chloride IVPB 07/20/21 01:29 Q24H GILDARDO Lisinopril 20 mg 07/15/21 22:45 07/16/21 09:02 Lisinopril 20 Mg Tab PO 20 mg BID GILDARDO Administration Meclizine HCl 25 mg 07/16/21 00:05 07/16/21 13:28 Meclizine 25 Mg Tab PO 25 mg TID PRN Administration dizziness Metoprolol Tartrate 25 mg 07/15/21 22:45 07/16/21 09:02 Metoprolol Tartrate 25 Mg Tab PO 25 mg BID GILDARDO Administration Miscellaneous Information 1 each 07/16/21 00:03 Pneumonia Protocol Utilized 1 Each Misc PO ONCE PRN Per Protocol Pantoprazole Sodium 40 mg 07/16/21 09:00 07/16/21 09:01 Pantoprazole 40 Mg Tablet PO 40 mg DAILY GILDARDO Administration Intake and Output 07/15/21 07/16/21 07/16/21 22:59 06:59 14:59 Other: Weight 55.338 kg 07/15/21 19:59 07/15/21 19:59
[2021-07-17] MEDS: MECLIZINE 25 MG TAB PO PRN (13:05)
[2021-07-17 21:01] VITALS: RESP 16
[2021-07-17] MEDS: amLODIPine 2.5 MG TAB PO SCH (21:20)
[2021-07-17] MEDS: ATORVASTATIN 10 MG TAB PO SCH (21:21)
[2021-07-17] MEDS: AZITHROMYCIN 500 MG TAB PO SCH (21:21)
[2021-07-18] MEDS: ASPIRIN 81 MG PO SCH (07:35)
[2021-07-18] MEDS: PANTOPRAZOLE 40 MG TABLET PO SCH (07:35)
[2021-07-18] MEDS: lisinopriL 20 MG TAB PO SCH (07:35)
[2021-07-18] MEDS: METOPROLOL TARTRATE 25 MG TAB PO SCH (07:35)
[2021-07-18 07:46] VITALS: BP 126/77; PULSE 70; TEMP 97.6
[2021-07-18 07:48] LABS: ALT 13 U/L (4-34); AST 24 U/L (14-36); African American GFR (CKD) 90 (>60 ml/min/1.73 sqM); Albumin 3.7 g/dL (3.5-5.0); Albumin/Globulin Ratio 1.4; Alkaline Phosphatase 74 U/L (38-126); Anion Gap 8 mmol/L; Blood Urea Nitrogen 17 mg/dL (7-17); Calcium 9.2 mg/dL (8.4-10.2); Carbon Dioxide 23 mmol/L (22-30); Chloride 104 mmol/L (98-107); Globulin 2.7 g/dL; Glucose 92 mg/dL (74-99); Non-African American GFR(CKD) 78 (>60 ml/min/1.73 sqM); Potassium 3.5 mmol/L (3.5-5.1); Sodium 135 mmol/L (137-145); Total Bilirubin 0.7 mg/dL (0.2-1.3); Total Protein 6.4 g/dL (6.3-8.2)
--- NOTE | 2021-07-18 08:01 | P.CONS ---
History of Present Illness - Reason for Consult Consult date: 07/17/21 pneumonia Requesting physician: Rehan Bourne - Chief Complaint lightheadness and dizzines worse x 1 day - History of Present Illness History of present illness : Patient is 81-year female presented to the ER 2 days ago for evaluation of lightheadedness patient mention she has been feeling lightheaded for years however her symptom has gotten worse the day of presentation to the hospital patient denies sensation of room spinning patient denies having any other URI symptoms patient feels fatigued all times and cannot keep her eyes open, felt weak to walk patient denies having any fever or any chills patient denies having any chest pain or shortness of breath patient denies having any cough some nausea but no vomiting no abdominal pain or any diarrhea with the symptoms the patient was evaluated by the ER physician on arrival to the ER the patient has been afebrile patient was not hypoxic or need for supplemental oxygen. Low normal white count no left shift kidney function was normal liver enzymes are normal urine has been negative ramírez PCR was negat rayshawn patient did have a chest x-ray large hiatal hernia that is new compared to oral exam no acute lung disease CT angiogram of the chest no evidence of PE large hiatal hernia bilateral lower lobe pulmonary atelectasis and mild infiltrate patient was started on Rocephin 2 g daily and received azithromycin with consult to ID for possible pneumonia Review of system: CONSTITUTIONAL: Positive for weakness however denies fever. EYES: No complaint. ENT: No complaint. RESPIRATORY: No complaint. CARDIOVASCULAR: No complaint. GENITOURINARY: No complaint. GASTROINTESTINAL: No complaint. MUSCULOSKELETAL: No complaint. INTEGUMENTARY: No complaint. PSYCHOLOGIC: No complaint. ENDOCRINE: No complaint. NEUROLOGIC: As per history of present illness. Past medical history : Reviewed, documented below Past surgical history : Reviewed, documented below Social history: Reviewed, documented below Medications: Reviewed, as documented below EXAMINATION: Vital sigans= Reviewed and documented below GENERAL DESCRIPTION: Elderly female lying in bed, no distress. No tachypnea or accessory muscle of respiration use. HEENT: Shows Pallor , no scleral icterus. Oral mucous membrane is dry. NECK: Trachea central, no thyromegaly. LUNGS: Unlabored breathing decreased breath sound at the base. No wheeze or crackle. HEART: S1, S2, regular rate and rhythm. ABDOMEN: Soft, no tenderness , guarding or rigidity EXTREMITIES: No edema of feet. SKIN: No rash, no masses palpable. NEUROLOGICAL: The patient is awake, alert, oriented x3, mood and affect normal. LABS AND RADIOLOGY: Reviewed results see below Assessment : Patient presented to hospital with lightheadedness weakness and dizziness in this patient who did not have any fever or white count patient do not have respiratory symptoms of any cough or sputum production she did have evidence of a large hiatal hernia and abnormal CT finding more likely representing atelectasis rather than pneumonia Plan: 1-we will obtain a CRP and a procalcitonin level 2-advised incentive spirometry 3-for now continue Rocephin however if procalcitonin level is normal to discontinue antibiotic We will follow on clinical condition and cultures to further adjust medication if needed Thank you for this consultation we will follow the patient along with you Past Medical History Past Medical History: GERD/Reflux, Hyperlipidemia, Hypertension Additional Past Medical History / Comment(s): HX OF PALPITATIONS, SVT., KIDNEY STONES, HIATAL HERNIA., DIZZINESS. , STATES SHE WAS HAVING DIARRHEA AND TAKING PEPTO BISMOL WITH DARK STOOLS. STATES STOOLS NORMAL NOW. History of Any Multi-Drug Resistant Organisms: None Reported Past Surgical History: Cardiac Ablation, Heart Catheterization, Hysterectomy Additional Past Surgical History / Comment(s): partial hysterectomy, pelvic prolapse/cystocele repair Past Anesthesia/Blood Transfusion Reactions: No Reported Reaction, Motion Sickness Additional Past Anesthesia/Blood Transfusion Reaction / Comm: GETS DIZZY AFTERWARDS Past Psychological History: No Psychological Hx Reported Past Alcohol Use History: Rare Past Drug Use History: None Reported - Past Family History Sister(s) Family Medical History: Cancer Additional Family Medical History / Comment(s): BREAST CANCER Father Additional Family Medical History / Comment(s): ulcers, hernia Mother Family Medical History: Hypertension, Renal Disease Additional Family Medical History / Comment(s): lupus Medications and Allergies Home Medications Medication Instructions Recorded Confirmed Type Aspirin 81 mg PO DAILY 03/01/15 07/15/21 History Atorvastatin [Lipitor] 10 mg PO HS 03/01/15 07/15/21 History Metoprolol Tartrate [Lopressor] 25 mg PO BID 03/01/15 07/15/21 History Meclizine [Antivert] 25 mg PO TID PRN 02/04/16 07/15/21 History Omeprazole [PriLOSEC] 20 mg PO DAILY 02/04/16 07/15/21 History amLODIPine [Norvasc] 2.5 mg PO HS 07/15/21 07/15/21 History lisinopriL 20 mg PO BID 07/15/21 07/15/21 History Allergies Allergy/AdvReac Type Severity Reaction Status Date / Time Sulfa (Sulfonamide Allergy Rash/Hives Verified 07/15/21 21:17 Antibiotics) Physical Exam Vitals: Vital Signs Temp Pulse Pulse Pulse Pulse Pulse Resp 07/17/21 14:05 98.3 F 60 18 07/17/21 13:06 67 18 07/17/21 09:45 64 18 07/17/21 00:00 59 L 18 07/16/21 18:08 73 72 69 16 07/16/21 17:57 98.0 F 74 16 BP BP BP BP BP Pulse Ox 07/17/21 14:05 153/90 95 07/17/21 13:06 147/82 95 07/17/21 09:45 148/84 95 07/17/21 00:00 143/86 95 07/16/21 18:08 156/92 120/76 154/85 07/16/21 17:57 148/78 94 L Results CBC & Chem 7: 07/17/21 09:09 07/18/21 06:43 Labs: Microbiology - Last 24 Hours (Table) 07/16/21 01:10 Blood Culture - Preliminary Blood No Growth after 24 hours 07/16/21 01:00 Blood Culture - Preliminary Blood No Growth after 24 hours
[2021-07-18 11:25] LABS: Basophils # (A) 0.05 X 10*3/uL (0.00-0.10); Basophils % (A) 0.8 %; Eosinophils # (A) 0.14 X 10*3/uL (0.04-0.35); Eosinophils % (A) 2.2 %; HCT 41.2 % (37.2-46.3); HGB 13.7 g/dL (12.0-15.0); Lymphocytes # (A) 1.37 X 10*3/uL (0.90-5.00); Lymphocytes % (A) 21.9 %; MCH 29.4 pg (27.0-32.0); MCHC 33.3 g/dL (32.0-37.0); MCV 88.4 fL (80.0-97.0); Mean Platelet Volume 11.4 fL (9.5-12.2); Monocytes # (A) 0.66 X 10*3/uL (0.20-1.00); Monocytes % (A) 10.6 %; Neutrophils # (A) 4.01 X 10*3/uL (1.80-7.70); Neutrophils % (A) 64.2 %; Platelet Count 208 X 10*3/uL (140-440); RBC 4.66 X 10*6/uL (4.10-5.20); WBC 6.25 X 10*3/uL (4.50-10.00)
== END 2021-07-18 13:24 | disposition home or self-care (01) | DRG 195 ==
LOC: EC 18:56 → 4SSUR 23:38
PROVIDERS: ADMIT Internal Medicine; ATTEND Internal Medicine
DX: J18.9 Pneumonia, unspecified organism (principal); I10 Essential (primary) hypertension; K44.9 Diaphragmatic hernia without obstruction or gangrene; Z20.822 Contact with and (suspected) exposure to COVID-19; I49.3 Ventricular premature depolarization; I08.3 Combined rheumatic disorders of mitral, aortic and tricuspid valves; E78.5 Hyperlipidemia, unspecified; K21.9 Gastro-esophageal reflux disease without esophagitis; I95.1 Orthostatic hypotension; M81.0 Age-related osteoporosis without current pathological fracture; R09.02 Hypoxemia; Z86.79 Personal history of other diseases of the circulatory system; Z82.49 Family history of ischemic heart disease and other diseases of the circulatory system; Z79.82 Long term (current) use of aspirin; Z79.899 Other long term (current) drug therapy; Z87.442 Personal history of urinary calculi; Z90.711 Acquired absence of uterus with remaining cervical stump; Z88.2 Allergy status to sulfonamides
CPT/HCPCS: 36415; 70450; 71045; 71046; 71275; 80053; 81003; 83605; 83735; 83880; 84145; 84484; 85025; 85610; 85730; 86140; 87040; 87635; 93005; 93306; 93880; 96361; 96365; 96366; 96367; 99285

== ENCOUNTER → 2021-07-26 | Outpatient (CLI) | payer MEDICARE ==
--- NOTE | 2021-07-26 12:28 | XR ---
EXAMINATION TYPE: XR chest 2V DATE OF EXAM: 07/26/2021 COMPARISON: Chest x-ray 07/17/2021, CT dated 07/15/2021 HISTORY: Pneumonia TECHNIQUE: Frontal and lateral views of the chest are obtained. FINDINGS: There is no focal air space opacity, pleural effusion, or pneumothorax seen. The cardiac silhouette size is within normal limits. Retrocardiac density shows a central lucency and is consist ent with hiatal hernia and partial intrathoracic stomach as noted on prior CT. Increased AP diameter of the chest is consistent with COPD, suspect there is some underlying mild emphysema. Aorta is dense . The osseous structures are intact. IMPRESSION: No acute cardiopulmonary process. Additional findings above.
== END | disposition home or self-care (01) ==
LOC: RADXRWHC 11:51
PROVIDERS: ATTEND Internal Medicine
DX: J11.1 Influenza due to unidentified influenza virus with other respiratory manifestations (principal); J18.9 Pneumonia, unspecified organism
CPT/HCPCS: 71046

== ENCOUNTER → 2022-02-28 | Outpatient (CLI) | payer MEDICARE ==
[2022-02-28 16:18] LABS: ALT 10 U/L (8-44); AST 21 U/L (13-35); African American GFR (CKD) 80.7 (60.0-200.0); Albumin 4.3 g/dL (3.8-4.9); Albumin/Globulin Ratio 1.65 (1.60-3.17); Alkaline Phosphatase 87 U/L (41-126); Blood Urea Nitrogen 21.6 mg/dL (9.0-27.0); Calcium 9.6 mg/dL (8.7-10.3); Carbon Dioxide 26.2 mmol/L (20.0-27.5); Chloride 104 mmol/L (96-109); Chol/HDL Ratio 1.75 Ratio; Globulin 2.6 g/dL (1.6-3.3); Glucose 97 mg/dL (70-110); LDL Cholesterol,Calculated 64.2 mg/dL (0.0-131.0); Non-African American GFR(CKD) 69.6 (60.0-200.0); Potassium 3.5 mmol/L (3.5-5.5); Sodium 142 mmol/L (135-145); Total Protein 6.9 g/dL (6.2-8.2); VLDL Calculation 11.84 mg/dL (5.00-40.00)
== END | disposition home or self-care (01) ==
LOC: LABWHC1 08:32
PROVIDERS: ATTEND Internal Medicine Interventional Cardiology
DX: E78.2 Mixed hyperlipidemia (principal)
CPT/HCPCS: 36415; 80053; 80061

== ENCOUNTER 2022-05-18 11:04 | Emergency (ER) | payer MEDICARE ==
[2022-05-18 11:17] VITALS: TEMP 97.8
[2022-05-18] MEDS ORDERED: METOCLOPRAMIDE 5 MG/ML 2 ML VIAL IVP STA (11:29)
[2022-05-18] MEDS ORDERED: SODIUM CHLORIDE 0.9% 1,000 ML IV STA (11:29)
[2022-05-18] MEDS ORDERED: MORPHINE SULFATE 2 MG/ML SYRINGE IVP STA (11:29)
[2022-05-18 12:05] LABS: Basophils % (A) 1 %; Eosinophils # (A) 0.1 k/uL (0-0.7); Eosinophils % (A) 1 %; HCT 42.5 % (34.0-46.0); Lymphocytes # (A) 0.9 k/uL (1.0-4.8); Lymphocytes % (A) 14 %; MCH 29.5 pg (25.0-35.0); MCV 89.5 fL (80.0-100.0); Mean Platelet Volume 7.7; Monocytes # (A) 0.4 k/uL (0-1.0); Monocytes % (A) 6 %; Neutrophils # (A) 5.1 k/uL (1.3-7.7); Neutrophils % (A) 77 %; Platelet Count 256 k/uL (150-450); RBC 4.75 m/uL (3.80-5.40); RDW 14.6 % (11.5-15.5); WBC 6.6 k/uL (3.8-10.6)
[2022-05-18 12:24] LABS: INR 0.9 (<1.2); Partial Thromboplastin Time 22.9 sec (22.0-30.0); Prothrombin Time 10.4 sec (9.0-12.0)
[2022-05-18 12:26] LABS: Albumin 4.4 g/dL (3.5-5.0); Calcium 9.5 mg/dL (8.4-10.2); Potassium 4.3 mmol/L (3.5-5.1); Total Bilirubin 0.9 mg/dL (0.2-1.3); Total Protein 7.3 g/dL (6.3-8.2)
--- NOTE | 2022-05-18 12:31 | XR ---
EXAMINATION TYPE: XR KUB DATE OF EXAM: 05/18/2022 COMPARISON: None INDICATION: Abdominal pain TECHNIQUE: Single view abdomen frontal projection FINDINGS: Loop of colon is under the right diaphragm. Nonspecific bowel gas is through the abdomen and pelvis. There appears to be predominantly colonic. Psoas margins are normal. No organomegaly is present. No suspicious calcifications. IMPRESSION: 1. Nonspecific abdomen.
[2022-05-18] MEDS ORDERED: SODIUM CHLORIDE 0.9% 1,000 ML IV ONE (13:59)
[2022-05-18 14:08] LABS: Appearance,Urine Cloudy (Clear); Bacteria,Urine Rare /hpf; Bilirubin,Urine Negative (Negative); Blood,Urine Negative (Negative); Color,Urine Light Yellow; Glucose,Urine (UA) Negative (Negative); Hyaline Casts,Urine 1 /lpf (0-2); Ketones,Urine 1+ (Negative); Leukocyte Esterase,Urine Large (Negative); Mucus,Urine Rare /hpf; Nitrite,Urine Negative (Negative); Protein,Urine Negative (Negative); RBC,Urine 1 /hpf (0-5); Specific Gravity,Urine 1.011 (1.001-1.035); Squamous Epithelial Cell,Urine 5 /hpf (0-4); Urobilinogen,Urine <2.0 mg/dL (<2.0); WBC,Urine 6 /hpf (0-5)
[2022-05-18 14:23] VITALS: BP 155/82; PULSE 67; RESP 16
[2022-05-18] MEDS ORDERED: ACET/COD 300 MG/30 MG STARTER PACK 6 TAB BTL PO STA (14:46)
--- NOTE | 2022-05-18 14:47 | ED ---
General Adult HPI - General Chief complaint: Skin/Abscess/Foreign Body Stated complaint: Shingles Time Seen by Provider: 05/18/22 11:19 Source: patient, family Mode of arrival: ambulatory Limitations: no limitations - History of Present Illness Initial comments: Patient is an 82-year-old female presenting with chief complaint of shingles pain and abdominal pain. Patient states that she has had shingles for the last 3 weeks, she is on her second course of Valtrex and tramadol, she states that they do not manage the pain well. Additionally patient also admits to abdominal pain for the last week. Located primarily on the left side, she states that it is a soreness. No changes noted with eating, some nausea but no vomiting. No diarrhea, constipation, melena, hematochezia. No dysuria, hematuria, urgency, frequency. No flank pain, chest pain, shortness of breath, fever, chills, palpitations, weakness. - Related Data Home Medications Medication Instructions Recorded Confirmed Aspirin 81 mg PO DAILY 03/01/15 07/15/21 Atorvastatin [Lipitor] 10 mg PO HS 03/01/15 07/15/21 Metoprolol Tartrate [Lopressor] 25 mg PO BID 03/01/15 07/15/21 Meclizine [Antivert] 25 mg PO TID PRN 02/04/16 07/15/21 Omeprazole [PriLOSEC] 20 mg PO DAILY 02/04/16 07/15/21 amLODIPine [Norvasc] 2.5 mg PO HS 07/15/21 07/15/21 lisinopriL [Prinivil] 20 mg PO BID 07/15/21 07/15/21 Previous Rx's Medication Instructions Recorded cefUROXime axetiL [Ceftin] 500 mg PO BID 7 Days #14 tab 07/18/21 Nitrofurantoin Monohyd/M-Cryst 100 mg PO Q12HR 5 Days #10 cap 05/18/22 [Macrobid] Allergies Allergy/AdvReac Type Severity Reaction Status Date / Time Sulfa (Sulfonamide Allergy Rash/Hives Verified 05/18/22 11:17 Antibiotics) Review of Systems ROS Statement: Those systems with pertinent positive or pertinent negative responses have been documented in the HPI. ROS Other: All systems not noted in ROS Statement are negative. Past Medical History Past Medical History: GERD/Reflux, Hyperlipidemia, Hypertension Additional Past Medical History / Comment(s): HX OF PALPITATIONS, SVT., KIDNEY STONES, HIATAL HERNIA., DIZZINESS. , STATES SHE WAS HAVING DIARRHEA AND TAKING PEPTO BISMOL WITH DARK STOOLS. STATES STOOLS NORMAL NOW. History of Any Multi-Drug Resistant Organisms: None Reported Past Surgical History: Cardiac Ablation, Heart Catheterization, Hernia Repair, Hysterectomy, Orthopedic Surgery Additional Past Surgical History / Comment(s): partial hysterectomy, pelvic prolapse/cystocele repair, ankle repair Past Anesthesia/Blood Transfusion Reactions: No Reported Reaction, Motion Sickness Additional Past Anesthesia/Blood Transfusion Reaction / Comment(s): GETS DIZZY AFTERWARDS Past Psychological History: No Psychological Hx Reported Smoking Status: Never smoker Past Alcohol Use History: Rare Past Drug Use History: None Reported - Past Family History Sister(s) Family Medical History: Cancer Additional Family Medical History / Comment(s): BREAST CANCER Father Additional Family Medical History / Comment(s): ulcers, hernia Mother Family Medical History: Hypertension, Renal Disease Additional Family Medical History / Comment(s): lupus General Exam Limitations: no limitations General appearance: alert, in no apparent distress Head exam: Present: atraumatic, normocephalic, normal inspection Eye exam: Present: normal appearance, EOMI. Absent: scleral icterus, periorbital swelling Neck exam: Present: normal inspection Respiratory exam: Present: normal lung sounds bilaterally. Absent: respiratory distress, wheezes, rales, rhonchi, stridor Cardiovascular Exam: Present: regular rate, normal rhythm, normal heart sounds. Absent: systolic murmur, diastolic murmur, rubs, gallop, clicks GI/Abdominal exam: Present: soft, tenderness (Left-sided), normal bowel sounds. Absent: distended, guarding, rebound, rigid Neurological exam: Present: alert, oriented X3, CN II-XII intact Psychiatric exam: Present: normal affect, normal mood Skin exam: Present: warm, dry, intact, other (Shingles seen on the back) Course Vital Signs 05/18/22 05/18/22 11:13 14:23 Temperature 97.8 F Pulse Rate 69 67 Respiratory 18 16 Rate Blood Pressure 144/87 155/82 O2 Sat by Pulse 97 95 Oximetry EKG Findings - EKG Comments: EKG Findings:: Sinus rhythm with rate of 67. AK interval 152. QRS duration 87. QT 415. Left axis deviation. No ischemic ST or T-wave changes. Medical Decision Making - Medical Decision Making Patient is an 82-year-old female presenting with chief complaint of shingles pain and abdominal pain. Patient has been treating shingles with tramadol and Valtrex. Patient states her abdominal pain is located on the left side both the upper and lower quadrants, and feels like a "soreness". No diarrhea, hematochezia, vomiting. On examination there is mild tenderness to palpation on the left side of the abdomen, no guarding, rebound, abdomen is soft and nondistended. Shingles rash is seen along the back on the right side. Lab work shows no leukocytosis. UA and creatinine are mildly elevated out 22 and 1.07 respectively, patient is receiving fluids. EKG shows no acute changes. Urine suggests possible UTI, we'll send for culture and treat with Macrobid. KUB x- ray is unremarkable. On reassessment patient reports improvement in pain and wishes to go home. She appears stable for discharge with outpatient follow-up at this time. Follow-up with PCP in one to 2 days. Report back to ER with any new or worsening symptoms. Discussed return parameters answered all questions. Patient conveyed verbal understanding and agreed to the plan. My attending is Dr. Sarmiento. - Lab Data Result diagrams: 05/18/22 11:51 05/18/22 11:51 Lab Results 05/18/22 05/18/22 05/18/22 Range/Units 11:51 11:51 11:51 WBC 6.6 (3.8-10.6) k/uL RBC 4.75 (3.80-5.40) m/uL Hgb 14.0 (11.4-16.0) gm/dL Hct 42.5 (34.0-46.0) % MCV 89.5 (80.0-100.0) fL MCH 29.5 (25.0-35.0) pg MCHC 33.0 (31.0-37.0) g/dL RDW 14.6 (11.5-15.5) % Plt Count 256 (150-450) k/uL MPV 7.7 Neutrophils % 77 % Lymphocytes % 14 % Monocytes % 6 % Eosinophils % 1 % Basophils % 1 % Neutrophils # 5.1 (1.3-7.7) k/uL Lymphocytes # 0.9 L (1.0-4.8) k/uL Monocytes # 0.4 (0-1.0) k/uL Eosinophils # 0.1 (0-0.7) k/uL Basophils # 0.0 (0-0.2) k/uL PT 10.4 (9.0-12.0) sec INR 0.9 (<1.2) APTT 22.9 (22.0-30.0) sec Sodium 135 L (137-145) mmol/L Potassium 4.3 (3.5-5.1) mmol/L Chloride 102 (98-107) mmol/L Carbon Dioxide 20 L (22-30) mmol/L Anion Gap 13 mmol/L BUN 22 H (7-17) mg/dL Creatinine 1.07 H (0.52-1.04) mg/dL Est GFR (CKD-EPI)AfAm 57 (>60 ml/min/1.73 sqM) Est GFR (CKD-EPI)NonAf 49 (>60 ml/min/1.73 sqM) Glucose 79 (74-99) mg/dL Plasma Lactic Acid Yahir (0.7-2.0) mmol/L Calcium 9.5 (8.4-10.2) mg/dL Total Bilirubin 0.9 (0.2-1.3) mg/dL AST 23 (14-36) U/L ALT 12 (4-34) U/L Alkaline Phosphatase 101 (38-126) U/L Troponin I (0.000-0.034) ng/mL Total Protein 7.3 (6.3-8.2) g/dL Albumin 4.4 (3.5-5.0) g/dL Amylase 39 (30-110) U/L Lipase 82 (23-300) U/L Urine Color Urine Appearance (Clear) Urine pH (5.0-8.0) Ur Specific [place] (1.001-1.035) Urine Protein (Negative) Urine Glucose (UA) (Negative) Urine Ketones (Negative) Urine Blood (Negative) Urine Nitrite (Negative) Urine Bilirubin (Negative) Urine Urobilinogen (<2.0) mg/dL Ur Leukocyte Esterase (Negative) Urine RBC (0-5) /hpf Urine WBC (0-5) /hpf Ur Squamous Epith Cells (0-4) /hpf Urine Bacteria (None) /hpf Hyaline Casts (0-2) /lpf Urine Mucus (None) /hpf 05/18/22 05/18/22 05/18/22 Range/Units 11:51 11:51 13:27 WBC (3.8-10.6) k/uL RBC (3.80-5.40) m/uL Hgb (11.4-16.0) gm/dL Hct (34.0-46.0) % MCV (80.0-100.0) fL MCH (25.0-35.0) pg MCHC (31.0-37.0) g/dL RDW (11.5-15.5) % Plt Count (150-450) k/uL MPV Neutrophils % % Lymphocytes % % Monocytes % % Eosinophils % % Basophils % % Neutrophils # (1.3-7.7) k/uL Lymphocytes # (1.0-4.8) k/uL Monocytes # (0-1.0) k/uL Eosinophils # (0-0.7) k/uL Basophils # (0-0.2) k/uL PT (9.0-12.0) sec INR (<1.2) APTT (22.0-30.0) sec Sodium (137-145) mmol/L Potassium (3.5-5.1) mmol/L Chloride (98-107) mmol/L Carbon Dioxide (22-30) mmol/L Anion Gap mmol/L BUN (7-17) mg/dL Creatinine (0.52-1.04) mg/dL Est GFR (CKD-EPI)AfAm (>60 ml/min/1.73 sqM) Est GFR (CKD-EPI)NonAf (>60 ml/min/1.73 sqM) Glucose (74-99) mg/dL Plasma Lactic Acid Yahir 1.0 (0.7-2.0) mmol/L Calcium (8.4-10.2) mg/dL Total Bilirubin (0.2-1.3) mg/dL AST (14-36) U/L ALT (4-34) U/L Alkaline Phosphatase (38-126) U/L Troponin I <0.012 (0.000-0.034) ng/mL Total Protein (6.3-8.2) g/dL Albumin (3.5-5.0) g/dL Amylase (30-110) U/L Lipase (23-300) U/L Urine Color Light Yellow Urine Appearance Cloudy H (Clear) Urine pH 5.0 (5.0-8.0) Ur Specific [place] 1.011 (1.001-1.035) Urine Protein Negative (Negative) Urine Glucose (UA) Negative (Negative) Urine Ketones 1+ H (Negative) Urine Blood Negative (Negative) Urine Nitrite Negative (Negative) Urine Bilirubin Negative (Negative) Urine Urobilinogen <2.0 (<2.0) mg/dL Ur Leukocyte Esterase Large H (Negative) Urine RBC 1 (0-5) /hpf Urine WBC 6 H (0-5) /hpf Ur Squamous Epith Cells 5 H (0-4) /hpf Urine Bacteria Rare H (None) /hpf Hyaline Casts 1 (0-2) /lpf Urine Mucus Rare H (None) /hpf Disposition Clinical Impression: Shingles, UTI (urinary tract infection) Disposition: HOME SELF-CARE Condition: Good Instructions (If sedation given, give patient instructions): Shingles (ED), Abdominal Pain (ED), Urinary Tract Infection in Older Adults (ED) Additional Instructions: Follow-up with PCP in one to 2 days. Report back to ER with any new or worsening symptoms. Take medication as prescribed. Prescriptions: Nitrofurantoin Monohyd/M-Cryst [Macrobid] 100 mg PO Q12HR 5 Days #10 cap Is patient prescribed a controlled substance at d/c from ED?: No Referrals: Rehan Bourne MD [Primary Care Provider] - 1-2 days Time of Disposition: 14:46
== END 2022-05-18 15:22 | disposition home or self-care (01) ==
LOC: EC 11:04
DX: B02.9 Zoster without complications (principal); N39.0 Urinary tract infection, site not specified; K21.9 Gastro-esophageal reflux disease without esophagitis; E78.5 Hyperlipidemia, unspecified; I10 Essential (primary) hypertension; Z88.2 Allergy status to sulfonamides; Z79.82 Long term (current) use of aspirin; Z79.899 Other long term (current) drug therapy
CPT/HCPCS: 36415; 93005; 80053; 82150; 83605; 83690; 84484; 85025; 85610; 85730; 81001; 74018; 99284; 96374; 96375; 96361 ×3; J2765; J2270

== ENCOUNTER 2022-05-20 15:37 | Emergency (ER) | payer MEDICARE ==
[2022-05-20 15:41] VITALS: TEMP 97.6
[2022-05-20] MEDS ORDERED: ONDANSETRON 4 MG/2 ML VIAL IVP STA (17:00)
[2022-05-20] MEDS ORDERED: MORPHINE SULFATE 4 MG/ML SYRINGE IVP STA (17:34)
[2022-05-20 17:38] LABS: Basophils % (A) 0 %; Eosinophils # (A) 0.1 k/uL (0-0.7); Eosinophils % (A) 1 %; HCT 40.7 % (34.0-46.0); HGB 13.8 gm/dL (11.4-16.0); Lymphocytes # (A) 0.5 k/uL (1.0-4.8); Lymphocytes % (A) 7 %; MCH 30.1 pg (25.0-35.0); MCHC 33.8 g/dL (31.0-37.0); MCV 89.1 fL (80.0-100.0); Mean Platelet Volume 7.9; Monocytes # (A) 0.3 k/uL (0-1.0); Monocytes % (A) 4 %; Neutrophils # (A) 6.1 k/uL (1.3-7.7); Neutrophils % (A) 86 %; Platelet Count 236 k/uL (150-450); RBC 4.57 m/uL (3.80-5.40); WBC 7.1 k/uL (3.8-10.6)
[2022-05-20 17:47] LABS: Albumin 4.6 g/dL (3.5-5.0); Calcium 9.7 mg/dL (8.4-10.2); Total Bilirubin 0.9 mg/dL (0.2-1.3); Total Protein 7.6 g/dL (6.3-8.2)
--- NOTE | 2022-05-20 19:31 | ED ---
Nausea/Vomiting/Diarrhea HPI - General Chief complaint: Nausea/Vomiting/Diarrhea Stated complaint: Shingles-Nausea,Vomiting Time Seen by Provider: 05/20/22 15:40 Source: patient Mode of arrival: ambulatory Limitations: no limitations - History of Present Illness Initial comments: 82-year-old female past medical history of reflux, hypertension, hyperlipidemia presents emergency Department with abdominal pain, nausea and vomiting. Was seen yesterday for similar symptoms. Laboratory studies were completed. She was given a prescription for Tylenol 3's for her shingles pain. The rash is located on her left upper back. She is on week 3 of her symptoms. Did have increasing nausea today and therefore returns. No fevers. No vomiting sick contacts with similar symptoms. No diarrhea or constipation. She is additionally taking tramadol and valacyclovir. No other alleviating, precipitating or modifying factors - Related Data Home Medications Medication Instructions Recorded Confirmed Aspirin 81 mg PO DAILY 03/01/15 05/20/22 Atorvastatin [Lipitor] 10 mg PO HS 03/01/15 05/20/22 Metoprolol Tartrate [Lopressor] 25 mg PO BID 03/01/15 05/20/22 Meclizine [Antivert] 25 mg PO Q8H PRN 02/04/16 05/20/22 lisinopriL [Prinivil] 20 mg PO BID 07/15/21 05/20/22 Pantoprazole Sodium 40 mg PO BID 05/20/22 05/20/22 traMADol HCL 50 mg PO Q6H PRN 05/20/22 05/20/22 valACYclovir HCL [Valacyclovir] 1,000 mg PO BID 05/20/22 05/20/22 Previous Rx's Medication Instructions Recorded Nitrofurantoin Monohyd/M-Cryst 100 mg PO Q12HR 5 Days #10 cap 05/18/22 [Macrobid] HYDROcodone/APAP 7.5-325MG [[place] 1 tab PO Q4HR PRN 3 Days #18 tab 05/20/22 7.5-325] Ondansetron Odt [Zofran Odt] 4 mg PO Q8HR PRN #15 tab 05/20/22 Allergies Allergy/AdvReac Type Severity Reaction Status Date / Time Sulfa (Sulfonamide Allergy Rash/Hives Verified 05/20/22 18:23 Antibiotics) Review of Systems ROS Statement: Those systems with pertinent positive or pertinent negative responses have been documented in the HPI. ROS Other: All systems not noted in ROS Statement are negative. Past Medical History Past Medical History: GERD/Reflux, Hyperlipidemia, Hypertension Additional Past Medical History / Comment(s): HX OF PALPITATIONS, SVT., KIDNEY STONES, HIATAL HERNIA., DIZZINESS. , STATES SHE WAS HAVING DIARRHEA AND TAKING PEPTO BISMOL WITH DARK STOOLS. STATES STOOLS NORMAL NOW. History of Any Multi-Drug Resistant Organisms: None Reported Past Surgical History: Cardiac Ablation, Heart Catheterization, Hernia Repair, Hysterectomy, Orthopedic Surgery Additional Past Surgical History / Comment(s): partial hysterectomy, pelvic prolapse/cystocele repair, ankle repair Past Anesthesia/Blood Transfusion Reactions: No Reported Reaction, Motion Sickness Additional Past Anesthesia/Blood Transfusion Reaction / Comment(s): GETS DIZZY AFTERWARDS Past Psychological History: No Psychological Hx Reported Smoking Status: Never smoker Past Alcohol Use History: Rare Past Drug Use History: None Reported - Past Family History Sister(s) Family Medical History: Cancer Additional Family Medical History / Comment(s): BREAST CANCER Father Additional Family Medical History / Comment(s): ulcers, hernia Mother Family Medical History: Hypertension, Renal Disease Additional Family Medical History / Comment(s): lupus General Exam Limitations: no limitations General appearance: alert, in no apparent distress Head exam: Present: atraumatic, normocephalic, normal inspection Eye exam: Present: normal appearance, PERRL, EOMI. Absent: scleral icterus, conjunctival injection, periorbital swelling ENT exam: Present: normal exam, mucous membranes moist Neck exam: Present: normal inspection. Absent: tenderness, meningismus, lymphadenopathy Respiratory exam: Present: normal lung sounds bilaterally. Absent: respiratory distress, wheezes, rales, rhonchi, stridor Cardiovascular Exam: Present: regular rate, normal rhythm, normal heart sounds. Absent: systolic murmur, diastolic murmur, rubs, gallop, clicks GI/Abdominal exam: Present: soft, tenderness (luq), normal bowel sounds. Absent: distended, guarding, rebound, rigid Extremities exam: Present: normal inspection, full ROM, normal capillary refill. Absent: tenderness, pedal edema, joint swelling, calf tenderness Back exam: Present: normal inspection Neurological exam: Present: alert, oriented X3, CN II-XII intact Psychiatric exam: Present: normal affect, normal mood Skin exam: Present: warm, dry, normal color, rash (left thoracic back - healing rash consistent with multiple scabs) Course Vital Signs 05/20/22 05/20/22 05/20/22 15:38 19:04 20:38 Temperature 97.6 F Pulse Rate 69 60 66 Respiratory 18 16 18 Rate Blood Pressure 187/106 193/81 186/78 O2 Sat by Pulse 95 96 95 Oximetry Medical Decision Making - Medical Decision Making Upon arrival patient was placed into room 33. A thorough history and physical exam was performed. IV access was established and laboratory studies are conducted. Patient saw Covid which is negative. CT of the abdomen and pelvis is performed as the patient has continued abdominal pain. Does not demonstrate any acute process. Recommend that the patient stop taking the Tylenol with Codeine this is likely upsetting her stomach. She will be switched over to [place]. Stop taking the tramadol. Follow up with her primary care doctor in 2-4 days and return for any new or worsening symptoms. Patient will also be provided with Zofran for any nausea. Patient agreed to treatment plan and was discharged home in stable condition - Lab Data Result diagrams: 05/20/22 17:25 05/20/22 17:25 Lab Results 05/20/22 05/20/22 05/20/22 Range/Units 17:25 17:25 17:25 WBC 7.1 (3.8-10.6) k/uL RBC 4.57 (3.80-5.40) m/uL Hgb 13.8 (11.4-16.0) gm/dL Hct 40.7 (34.0-46.0) % MCV 89.1 (80.0-100.0) fL MCH 30.1 (25.0-35.0) pg MCHC 33.8 (31.0-37.0) g/dL RDW 15.0 (11.5-15.5) % Plt Count 236 (150-450) k/uL MPV 7.9 Neutrophils % 86 % Lymphocytes % 7 % Monocytes % 4 % Eosinophils % 1 % Basophils % 0 % Neutrophils # 6.1 (1.3-7.7) k/uL Lymphocytes # 0.5 L (1.0-4.8) k/uL Monocytes # 0.3 (0-1.0) k/uL Eosinophils # 0.1 (0-0.7) k/uL Basophils # 0.0 (0-0.2) k/uL Sodium 134 L (137-145) mmol/L Potassium 4.0 (3.5-5.1) mmol/L Chloride 99 (98-107) mmol/L Carbon Dioxide 24 (22-30) mmol/L Anion Gap 11 mmol/L BUN 11 (7-17) mg/dL Creatinine 0.74 (0.52-1.04) mg/dL Est GFR (CKD-EPI)AfAm 89 (>60 ml/min/1.73 sqM) Est GFR (CKD-EPI)NonAf 77 (>60 ml/min/1.73 sqM) Glucose 104 H (74-99) mg/dL Calcium 9.7 (8.4-10.2) mg/dL Total Bilirubin 0.9 (0.2-1.3) mg/dL AST 25 (14-36) U/L ALT 12 (4-34) U/L Alkaline Phosphatase 109 (38-126) U/L Total Protein 7.6 (6.3-8.2) g/dL Albumin 4.6 (3.5-5.0) g/dL Lipase 72 (23-300) U/L Urine Color Yellow Urine Appearance Clear (Clear) Urine pH 6.0 (5.0-8.0) Ur Specific [place] 1.015 (1.001-1.035) Urine Protein Negative (Negative) Urine Glucose (UA) Negative (Negative) Urine Ketones 2+ H (Negative) Urine Blood Negative (Negative) Urine Nitrite Negative (Negative) Urine Bilirubin Negative (Negative) Urine Urobilinogen <2.0 (<2.0) mg/dL Ur Leukocyte Esterase Trace H (Negative) Urine RBC <1 (0-5) /hpf Urine WBC 2 (0-5) /hpf Ur Squamous Epith Cells 1 (0-4) /hpf Urine Mucus Rare H (None) /hpf Coronavirus (PCR) (Not Detectd) 05/20/22 Range/Units 17:58 WBC (3.8-10.6) k/uL RBC (3.80-5.40) m/uL Hgb (11.4-16.0) gm/dL Hct (34.0-46.0) % MCV (80.0-100.0) fL MCH (25.0-35.0) pg MCHC (31.0-37.0) g/dL RDW (11.5-15.5) % Plt Count (150-450) k/uL MPV Neutrophils % % Lymphocytes % % Monocytes % % Eosinophils % % Basophils % % Neutrophils # (1.3-7.7) k/uL Lymphocytes # (1.0-4.8) k/uL Monocytes # (0-1.0) k/uL Eosinophils # (0-0.7) k/uL Basophils # (0-0.2) k/uL Sodium (137-145) mmol/L Potassium (3.5-5.1) mmol/L Chloride (98-107) mmol/L Carbon Dioxide (22-30) mmol/L Anion Gap mmol/L BUN (7-17) mg/dL Creatinine (0.52-1.04) mg/dL Est GFR (CKD-EPI)AfAm (>60 ml/min/1.73 sqM) Est GFR (CKD-EPI)NonAf (>60 ml/min/1.73 sqM) Glucose (74-99) mg/dL Calcium (8.4-10.2) mg/dL Total Bilirubin (0.2-1.3) mg/dL AST (14-36) U/L ALT (4-34) U/L Alkaline Phosphatase (38-126) U/L Total Protein (6.3-8.2) g/dL Albumin (3.5-5.0) g/dL Lipase (23-300) U/L Urine Color Urine Appearance (Clear) Urine pH (5.0-8.0) Ur Specific [place] (1.001-1.035) Urine Protein (Negative) Urine Glucose (UA) (Negative) Urine Ketones (Negative) Urine Blood (Negative) Urine Nitrite (Negative) Urine Bilirubin (Negative) Urine Urobilinogen (<2.0) mg/dL Ur Leukocyte Esterase (Negative) Urine RBC (0-5) /hpf Urine WBC (0-5) /hpf Ur Squamous Epith Cells (0-4) /hpf Urine Mucus (None) /hpf Coronavirus (PCR) Not Detected (Not Detectd) Disposition Clinical Impression: Shingles, Nausea and vomiting, Abdominal pain Disposition: HOME SELF-CARE Condition: Stable Instructions (If sedation given, give patient instructions): Abdominal Pain (ED) Additional Instructions: Please take the [place] as needed for pain. Stop taking the Tramadol and Tylenol 3 while on the [place]. The tylenol 3 is likely upsetting your stomach. Take the gabapentin and acyclovir as directed. Follow up with your doctor in 2 to 4 days and return for any new or worsening symptoms Prescriptions: HYDROcodone/APAP 7.5-325MG [[place] 7.5-325] 1 tab PO Q4HR PRN 3 Days #18 tab PRN Reason: Pain Ondansetron Odt [Zofran Odt] 4 mg PO Q8HR PRN #15 tab PRN Reason: Nausea Is patient prescribed a controlled substance at d/c from ED?: Yes When asked, does pt state using other controlled substances?: No If prescribed controlled substance>3 days was MAPS reviewed?: Prescribed <3 Days Referrals: Rehan Bourne MD [Primary Care Provider] - 1-2 days Time of Disposition: 20:40
[2022-05-20 19:43] LABS: Appearance,Urine Clear (Clear); Bilirubin,Urine Negative (Negative); Blood,Urine Negative (Negative); Color,Urine Yellow; Glucose,Urine (UA) Negative (Negative); Leukocyte Esterase,Urine Trace (Negative); Mucus,Urine Rare /hpf; Nitrite,Urine Negative (Negative); Protein,Urine Negative (Negative); RBC,Urine <1 /hpf (0-5); Specific Gravity,Urine 1.015 (1.001-1.035); Squamous Epithelial Cell,Urine 1 /hpf (0-4); Urobilinogen,Urine <2.0 mg/dL (<2.0); WBC,Urine 2 /hpf (0-5)
--- NOTE | 2022-05-20 19:49 | CT ---
EXAMINATION TYPE: CT abdomen pelvis w con DATE OF EXAM: 05/20/2022 COMPARISON: 03/01/2015 HISTORY: abdominal pain, nausea, vomiting, diarrhea CT DLP: 473.7 mGycm Automated exposure control for dose reduction was used. CONTRAST: Performed with IV Contrast, patient injected with 100 mL of Isovue 300. The lung bases are clear of infiltrate. There is mild scarring and subsegmental atelectasis at the tino ng bases. No pleural effusion. Heart size is top normal. No pericardial effusion. There is 1 cm cyst in the anterior right lobe of the liver. The bile ducts are not dilated. Gallbladd er appears normal. Spleen is intact. There is no pancreatic mass. The stomach is intact. There is no adrenal mass. Kidneys show satisfactory contrast opacification. There is no hydronephrosi s. Ureters are not dilated. There is no retroperitoneal adenopathy. The bladder distends smoothly. No inguinal hernia. No free fluid in the pelvis. No pelvic mass. Delayed images show normal renal excre tion. There is no mesenteric edema. No ascites or free air. No sign of a bowel obstruction. There is some r etained fecal material in the right colon. The terminal ileum appears normal. Appendix is medial and appears normal. Lumbar spine is intact. No compression fracture. Normal alignment. Bony pelvis is intact. The hip joints are intact. IMPRESSION: There is some retained fecal material in the right colon. Minimal scarring and subsegmental atelectas is at the lung bases without change.
[2022-05-20 19:53] LABS: Ketones,Urine 2+ (Negative)
[2022-05-20] MEDS ORDERED: lisinopriL 20 MG TAB PO SCH (20:00)
[2022-05-20] MEDS ORDERED: METOPROLOL TARTRATE 25 MG TAB PO SCH (20:00)
[2022-05-20] MEDS ORDERED: ONDANSETRON 4 MG ODT STARTER PACK 2 TAB BTL PO STA (20:36)
[2022-05-20 20:38] VITALS: BP 186/78; PULSE 66; RESP 18
== END 2022-05-20 20:48 | disposition home or self-care (01) ==
LOC: EC 15:37
DX: B02.9 Zoster without complications (principal); E78.5 Hyperlipidemia, unspecified; I10 Essential (primary) hypertension; K21.9 Gastro-esophageal reflux disease without esophagitis; Z79.899 Other long term (current) drug therapy; Z20.822 Contact with and (suspected) exposure to COVID-19; Z88.2 Allergy status to sulfonamides; Z79.82 Long term (current) use of aspirin
CPT/HCPCS: 36415; 80053; 83690; 85025; 81001; 87635; 74177; 99284; 96374; 96375; J2270; J2405; S0119; Q9967

== ENCOUNTER → 2022-07-10 | Outpatient (CLI) | payer MEDICARE ==
[2022-07-10 14:39] LABS: ALT 13 U/L (8-44); AST 27 U/L (13-35); African American GFR (CKD) 80.7 (60.0-200.0); Albumin 4.1 g/dL (3.8-4.9); Albumin/Globulin Ratio 1.46 (1.60-3.17); Alkaline Phosphatase 85 U/L (41-126); BUN/Creat Ratio 19.13 Ratio (12.00-20.00); Blood Urea Nitrogen 15.3 mg/dL (9.0-27.0); Calcium 9.5 mg/dL (8.7-10.3); Carbon Dioxide 25.6 mmol/L (20.0-27.5); Chloride 104 mmol/L (96-109); Chol/HDL Ratio 2.06 Ratio; Globulin 2.8 g/dL (1.6-3.3); Glucose 92 mg/dL (70-110); LDL Cholesterol,Calculated 75.9 mg/dL (0.0-131.0); Non-African American GFR(CKD) 69.6 (60.0-200.0); Sodium 141 mmol/L (135-145); Total Protein 6.9 g/dL (6.2-8.2)
== END | disposition home or self-care (01) ==
LOC: LABWHC1 09:32
PROVIDERS: ATTEND Internal Medicine Interventional Cardiology
DX: E78.2 Mixed hyperlipidemia (principal)
CPT/HCPCS: 36415; 80053; 80061

== ENCOUNTER → 2023-08-27 | Outpatient (CLI) | payer MEDICARE ==
[2023-08-27 19:29] LABS: ALT 15 U/L (8-44); AST 20 U/L (13-35); Chol/HDL Ratio 1.94 Ratio; LDL Cholesterol,Calculated 70.6 mg/dL (0.0-131.0); VLDL Calculation 12.64 mg/dL (5.00-40.00)
== END | disposition home or self-care (01) ==
LOC: LABWHC1 11:08
PROVIDERS: ATTEND Internal Medicine Interventional Cardiology
DX: E78.2 Mixed hyperlipidemia (principal)
CPT/HCPCS: 36415; 80061; 84450; 84460

== ENCOUNTER → 2024-02-24 | Outpatient (CLI) | payer MEDICARE ==
[2024-02-24 15:21] LABS: ALT 20 U/L (8-44); AST 24 U/L (13-35); Albumin 4.3 g/dL (3.8-4.9); Albumin/Globulin Ratio 1.79 Ratio (1.60-3.17); Alkaline Phosphatase 95 U/L (41-126); BUN/Creat Ratio 19.67 Ratio (12.00-20.00); Blood Urea Nitrogen 17.7 mg/dL (9.0-27.0); Calcium 10.1 mg/dL (8.7-10.3); Carbon Dioxide 25.1 mmol/L (21.6-31.8); Chloride 104 mmol/L (96-109); Chol/HDL Ratio 1.98 Ratio; Globulin 2.4 g/dL (1.6-3.3); Glucose 98 mg/dL (70-110); LDL Cholesterol,Calculated 81.7 mg/dL (0.0-131.0); Potassium 4.4 mmol/L (3.5-5.5); Sodium 141 mmol/L (135-145); Total Bilirubin 0.8 mg/dL (0.3-1.2); Total Protein 6.7 g/dL (6.2-8.2); VLDL Calculation 14.84 mg/dL (5.00-40.00)
== END | disposition home or self-care (01) ==
LOC: LABWHC1 08:39
PROVIDERS: ATTEND Internal Medicine Interventional Cardiology
DX: I10 Essential (primary) hypertension (principal); E78.2 Mixed hyperlipidemia
CPT/HCPCS: 36415; 80053; 80061

== ENCOUNTER → 2024-07-27 | Outpatient (CLI) | payer MEDICARE ==
[2024-07-27 15:38] LABS: ALT 20 U/L (8-44); AST 24 U/L (13-35); LDL Cholesterol,Calculated 78.9 mg/dL (0.0-131.0); VLDL Calculation 13.12 mg/dL (5.00-40.00)
== END | disposition home or self-care (01) ==
LOC: LABWHC1 09:29
PROVIDERS: ATTEND Internal Medicine Interventional Cardiology
DX: E78.2 Mixed hyperlipidemia (principal)
CPT/HCPCS: 36415; 80061; 84450; 84460

== ENCOUNTER → 2025-02-23 | Outpatient (CLI) | payer MEDICARE ==
[2025-02-23 16:06] LABS: ALT 19 U/L (8-44); AST 24 U/L (13-35); Albumin 4.1 g/dL (3.8-4.9); Albumin/Globulin Ratio 1.64 Ratio (1.60-3.17); Alkaline Phosphatase 94 U/L (41-126); Blood Urea Nitrogen 21.4 mg/dL (9.0-27.0); Calcium 9.4 mg/dL (8.7-10.3); Carbon Dioxide 23.4 mmol/L (21.6-31.8); Chloride 105 mmol/L (96-109); Chol/HDL Ratio 1.86 Ratio; Globulin 2.5 g/dL (1.6-3.3); Glucose 94 mg/dL (70-110); LDL Cholesterol,Calculated 70.1 mg/dL (0.0-131.0); Potassium 4.1 mmol/L (3.5-5.5); Sodium 141 mmol/L (135-145); Total Bilirubin 0.6 mg/dL (0.3-1.2); Total Protein 6.6 g/dL (6.2-8.2); VLDL Calculation 15.54 mg/dL (5.00-40.00)
== END | disposition home or self-care (01) ==
LOC: LABWHC1 09:40
PROVIDERS: ATTEND Internal Medicine Interventional Cardiology
DX: I10 Essential (primary) hypertension (principal); E78.2 Mixed hyperlipidemia
CPT/HCPCS: 36415; 80053; 80061